=== PATIENT | female | born 1985 | race African-American/Black ===

== ENCOUNTER 2019-07-27 10:52 | Emergency (ER) | payer BC, SELFPAY ==
[2019-07-27 11:02] VITALS: BP 124/78; PULSE 83; RESP 16; TEMP 37; O2SAT 100
--- NOTE | 2019-07-27 11:04 | ED.URI ---
HPI - URI/Sore Throat General Chief Complaint: Upper Respiratory Infection Stated Complaint: ear pain/pressure/headache/congestion Time Seen by Provider: 07/27/19 11:04 Source: patient and RN notes reviewed History of Present Illness HPI Narrative: Patient is a 34-year-old female who presents the urgent care with complaints of bilateral ear pressure, decreased hearing, headache and congestion. Patient states is been off and on for approximately 2 months. States that she was seen in the emergency room and given Augmentin and took the 5 days, felt better, and then it returned within a week. Patient was seen again and given 7 days of Augmentin and states her symptoms did resolve for a few weeks. Patient states within the last couple weeks symptoms have returned and she is taken some Sudafed [id number] and Mucinex. Patient denies any fever, chills, nausea, vomiting, cough, wheezing. No other acute complaints. No acute distress noted. Patient read the plan of care. Related Data Allergies Allergy/AdvReac Type Severity Reaction Status Date / Time pomegranate Allergy Severe Wheezing Verified 07/27/19 10:59 Review of Systems Review of Systems: Narrative: CONSTITUTIONAL: Denies fever, chills, or sweats. EYES: Denies visual changes, redness, or discharge. ENT: Reports of bilateral ear pressure, decreased hearing, sinus congestion CARDIOVASCULAR: Denies chest pain, palpitations, or edema. RESPIRATORY: Denies cough or dyspnea. GASTROINTESTINAL: Denies abdominal pain, nausea, vomiting, or diarrhea. GENITOURINARY: Denies dysuria or hematuria. SKIN: Denies rash or itching. MUSCULOSKELETAL: Denies back pain, joint pain, or myalgia. NEUROLOGIC: Reports of intermittent headaches All other systems reviewed are negative, except as documented in HPI. [facility] Past Medical History Medical History (Updated 07/27/19 @ 11:33 by CASTILLO Macario) Hypertension Surgical History Surgical History (Updated 01/21/19 @ 02:40 by Corbin Guerra MD) H/O dilation and curettage History of appendectomy History of removal of ovarian cyst Social History Social History (Updated 01/21/19 @ 02:39 by Corbin Guerra MD) Substance use: never Gender identity (if verbalized by the patient): Female Comments At the time of my signature, I reviewed and agree with the nursing past medical, surgical, social, and family history. There is no relevant family history pertinent to the patient complaint. Exam Narrative: Exam Narrative: GENERAL: This is a well-nourished, well-developed patient, in no apparent distress. HEAD: normocephalic, atraumatic. EYES: PERRL. Sclera clear/white. Vision is grossly intact. EARS: External ears normal, auditory canals clear and without drainage, moderate fluid noted behind the right TM without otitis, left TMs normal without perforation. Hearing grossly intact. NOSE: External nose normal with no obvious nasal discharge, nares without redness, no rhinorrhea. THROAT: Mucous membranes moist, posterior pharynx clear. Mild postnasal drainage NECK: Neck supple CARDIOVASCULAR: Regular rate and rhythm without murmurs, gallops, or rubs. RESPIRATORY: Clear to auscultation. Breath sounds equal bilaterally. No wheezes, rales, or rhonchi. SKIN: warm, intact with no suspicious lesions or rash, good texture and turgor. NEURO: awake, alert, and oriented to person, place and time. There were no obvious focal neurologic abnormalities. EXTREMITIES: No clubbing, cyanosis, or edema. Course Vital Signs Vital signs: Vital Signs Temperature 98.6 F 07/27/19 11:02 Pulse Rate 83 07/27/19 11:02 Respiratory Rate 16 07/27/19 11:02 Blood Pressure 124/78 07/27/19 11:02 Pulse Oximetry 100 07/27/19 11:02 Temperature 98.6 F 07/27/19 11:02 Pulse Rate 83 07/27/19 11:02 Respiratory Rate 16 07/27/19 11:02 Blood Pressure 124/78 07/27/19 11:02 Pulse Oximetry 100 07/27/19 11:02 Reviewed [facility] [place]/Maureen Baez
== END 2019-07-27 11:45 | disposition home or self-care (01) ==
PROVIDERS: Emergency Provider Nurse Practitioner Family
DX: J30.89 Other allergic rhinitis (principal); I10 Essential (primary) hypertension
CPT/HCPCS: 99213; G0463

== ENCOUNTER 2019-10-30 16:21 | Observation (INO) | payer BC, SELFPAY ==
--- NOTE | ~2019-10-30 | CT_ITS ---
EXAMINATION: CT abdomen pelvis w con DATE: 10/30/2019 17:29 INDICATION: Abdominal pain TECHNIQUE: Computed tomography (CT) of the abdomen and pelvis was performed with 100 cc Omnipaque 350 intravenous contrast. The dose-length product was 551.13 mGy-cm. Automated exposure control and iter ative reconstruction technique were employed. COMPARISON: CT dated 09/19/2017 FINDINGS: Lung bases are unremarkable. Heart size normal. No significant pleural or pericardial effus ion. The liver, spleen, pancreas, adrenal glands and kidneys are unremarkable. Gallbladder is present . There is a 5.4 cm left ovarian cyst. There is a complex mass in the right adnexa, possibly ovary with hemorrhagic cyst. Differential diagnosis includes cecal mass, although less favored. Nonobstructive bowel gas pattern. No free air. No acute osseous abnormality. IMPRESSION: 1. Complex heterogeneous right adnexal mass situated adjacent to the uterus in the cecum, possibly pr ominent ovary with possible hemorrhagic cyst. Cecal mass less favored. Consider correlation with ultr asound. 2: 5.4 cm left ovarian cyst. Reviewed, dictated and finalized at location A. IMPRESSION: 1. Complex heterogeneous right adnexal mass situated adjacent to the uterus in the cecum, possibly prominent ovary with possible hemorrhagic cyst. Cecal mass less favored. Consider correlation with ultrasound. 2: 5.4 cm left ovarian cyst.
--- NOTE | ~2019-10-30 | US_ITS ---
EXAMINATION: US pelvic complete w TV DATE: 10/30/2019 18:42 INDICATION: Pelvic pain Comparison:Ultrasound dated 04/21/[address] dated 10/30/2019 TECHNIQUE: Multiple transabdominal and endovaginal sonographic images of the pelvis performed. FINDINGS: The uterus measures 11.8 x 6.9 x 5.4 cm. The endometrial complex measures 10 mm. In the right adnexa there is a complex predominantly hypoechoic mass with internal vascularity measur ing 6.9 x 4.4 x 2.3 cm. There are a few peripheral follicles. There is a complicated 5 cm cyst of the left ovary, likely hemorrhagic. Free fluid in the left adnexa. IMPRESSION: 1. Complex hypoechoic right adnexal mass measuring 6.9 x 4.4 x 2.3 cm, likely an enlarged heterogeneo us ovary. There is low resistive internal vascularity. Nonspecific findings, although intermittent ov giacomo torsion should be considered. 2: Complicated 5 cm left ovarian cyst, likely hemorrhagic. Reviewed, dictated and finalized at location A. IMPRESSION: 1. Complex hypoechoic right adnexal mass measuring 6.9 x 4.4 x 2.3 cm, likely a n enlarged heterogeneous ovary. There is low resistive internal vascularity. No nspecific findings, although intermittent ovarian torsion should be considered. 2: Complicated 5 cm left ovarian cyst, likely hemorrhagic.
[2019-10-30 16:28] VITALS: PULSE 79; RESP 18; TEMP 37.3; O2SAT 100
--- NOTE | 2019-10-30 16:28 | ED.ABDPAIN ---
HPI - Abdominal Pain General Chief Complaint: Abdominal Pain <Mathieu Aguirre DO - Last Filed: 10/31/19 07:10> Stated Complaint: abd pain <Mathieu Aguirre DO - Last Filed: 10/31/19 07:10> Time Seen by Provider: 10/30/19 16:23 <Mathieu Aguirre DO - Last Filed: 10/31/19 07:10> Source: RN notes reviewed <Mathieu Aguirre DO - Last Filed: 10/31/19 07:10> History of Present Illness HPI narrative: Patient presents emergency department from home via EMS for abdominal pain. Patient states abdominal pain began 3 days ago. Pain is located in the bilateral lower quadrants and right upper quadrant. Described as sharp and stabbing. Associate with nausea vomiting. Denies any fevers or chills chest pain shortness of breath or any other symptoms. States she took no pain medication at home today for the symptoms <Mathieu Aguirre DO - Last Filed: 10/31/19 07:10> Related Data Allergies/Adverse Reactions: Allergies Allergy/AdvReac Type Severity Reaction Status Date / Time pomegranate Allergy Severe Wheezing Verified 10/30/19 16:26 <Mathieu Aguirre DO - Last Filed: 10/31/19 07:10> Review of Systems Review of Systems: Narrative: Gen.: Denies fevers or chills ENT: Denies congestion Respiratory: Denies shortness of breath or cough CV: Denies chest pain or palpitations GI: See HPI denies burning, urgency, frequency or hematuria Musculoskeletal: Denies back pain or muscle pain Neuro: Denies numbness, tingling, weakness or focal weakness Skin: Denies rash Except as documented, all other systems reviewed and negative <Mathieu Aguirre DO - Last Filed: 10/31/19 07:10> [facility] Past Medical History Medical History: Medical History Hypertension <Mathieu Aguirre DO - Last Filed: 10/31/19 07:10> Surgical History Surgical History: Surgical History (Updated 01/21/19 @ 02:40 by Corbin Guerra MD) H/O dilation and curettage History of appendectomy History of removal of ovarian cyst <Mathieu Aguirre DO - Last Filed: 10/31/19 07:10> Social History Social History: Social History Substance use: never Gender identity (if verbalized by the patient): Female <Mathieu Aguirre DO - Last Filed: 10/31/19 07:10> Exam Narrative: Exam Narrative: APPEARANCE: No acute distress, nontoxic, resting in bed HEENT: Normocephalic, atraumatic, OMM RESPIRATORY: No respiratory distress, clear to auscultation bilaterally with no rhonchi wheezing or rales CARDIOVASCULAR: RRR s murmur ABDOMINAL: Soft, nondistended, diffusely tender to palpation, no rebound or guarding MUSCULOSKELETAl: Moves all extremities. No clubbing, cyanosis or edema. NEURO: Awake and alert. Following commands, speech normal, no focal deficits SKIN:: Warm, dry. Normal Color PSYCHIATRIC: Normal affect/mood <Mathieu Aguirre DO - Last Filed: 10/31/19 07:10> Course Course Emergency Course: Care turned over Dr. Guerra at shift change awaiting ultrasound results and disposition <Mathieu Aguirre DO - Last Filed: 10/31/19 07:10> Patient informed of results. Still having lower abdominal pain. Discussed case with Dr. Zacarias who is on-call for Dr. Pulliam. She would like the patient moved to the OB floor for further evaluation. Patient should remain n.p.o. at midnight. She will receive IV narcotics for pain control. They would like a repeat ultrasound in the a.m. <Corbin Guerra MD - Last Filed: 10/30/19 20:39> Vital Signs Vital signs: Vital Signs Temperature 99.1 F 10/30/19 16:28 Pulse Rate 79 10/30/19 16:28 Respiratory Rate 18 10/30/19 16:28 Pulse Oximetry 100 10/30/19 16:28 Temperature 98.4 F 10/31/19 04:30 Pulse Rate 64 10/31/19 04:30 Respiratory Rate 16 10/31/19 04:30 Blood Pressure 101/66 10/31/19 04:30 Pulse Oximetry 100 10/31/19 04:
[2019-10-30] MEDS: SODIUM CHLORIDE 0.9% IV 1,000 ML 999 ML IV CONT (16:38)
[2019-10-30] MEDS: ONDANSETRON INJ 4 MG/2 ML VIAL IV PUSH (16:38)
[2019-10-30 16:41] LABS: Basophils Percent Auto 0.2 % (0.2-1.2); Eosinophils Percent Auto 0.3 % (0-4.4); Hemoglobin 8.7 g/dL (12.0-15.0); Immature Granulocyte Absolute 0.02 K/mm3 (0.00-0.031); Immature Granulocyte Percent A 0.2 % (0-0.5); Lymphocytes Absolute Auto 1.15 K/mm3 (0.9-3.2); Lymphocytes Percent Auto 13.4 % (18.3-44.2); Mean Corpuscular HGB Conc 31.1 g/dl (32-36); Mean Corpuscular Hemoglobin 23.8 pg (26-34); Mean Corpuscular Volume 76.7 fl (80-100); Mean Platelet Volume 10.1 fl (7.4-10.4); Monocytes Absolute Auto 0.3 K/mm3 (0.1-0.6); Monocytes Percent Auto 3.7 % (2.6-8.5); Neutrophils Percent Auto 82.2 % (45.5-73.1); Platelet Count Result 268 k/mm3 (150-375); Red Blood Count 3.65 M/mm3 (4.2-5.4); Red Cell Distribution Width 18.6 % (11.5-14.5); White Blood Count 8.6 K/mm3 (4.5-10.0)
[2019-10-30 16:55] LABS: Alanine Aminotransferase 6 U/L (4-35); Albumin Level 4.1 g/dL (3.5-5.1); Alkaline Phosphatase 43 U/L (38-126); Anion Gap 4 mmol/L (8-16); Aspartate Amino Transferase 15 U/L (14-36); Bilirubin,Total 0.2 mg/dL (0.2-1.3); Blood Urea Nitrogen 5 mg/dL (7-17); Calcium 8.5 mg/dL (8.4-10.2); Carbon Dioxide 26 mmol/L (22-30); Chloride 105 mmol/L (98-107); Estimated CRCL calculation 107 ml/min; Estimated Glomerular Filt Rate > 60; Glucose 89 mg/dL (65-105); Lipase 33 U/L (23-300); Potassium 3.6 mmol/L (3.4-5.0); Sodium 135 mmol/L (137-145)
[2019-10-30 17:54] LABS: Add Urine Microscopic? YES; Appearance Urine Clear (Clear); Bilirubin Urine Negative (Negative); Blood Urine Negative (Negative); Color Urine Straw (Yellow); Glucose Urine UA Negative (Negative); Ketones Urine Negative (Negative); Leukocyte Esterase Ur Trace LEU/UL (Negative); Mucus Urine Rare /lpf; Nitrate Urine Negative (Negative); Protein Urine Negative (Negative); Squamous Epithelial Cell Urine Moderate /hpf (Few); Urobilinogen Urine Negative mg/dL (<2.0)
[2019-10-30 17:55] LABS: Specific Grav Ur 1.032 (1.001-1.035)
[2019-10-30] MEDS: MORPHINE SULFATE 4 MG/ML INJ IV PUSH ×2 (18:58→21:56)
[2019-10-30 20:24] VITALS: BP 117/73; PULSE 65; RESP 18; O2SAT 100
[2019-10-30 20:52] VITALS: BP 109/67; PULSE 65; RESP 18; O2SAT 100
[2019-10-30 21:30] VITALS: BP 125/88; PULSE 75; RESP 16; TEMP 36.9; O2SAT 100; O2SAT 99
--- NOTE | 2019-10-30 21:30 | ADMGEN ---
This patient, Brigitte Roberts, was admitted to OB 2nd Floor Room 289-00. Patient/family oriented to hospital policies and general routines including ID bracelet, bed and alarms, visiting hours, pain management, procedures, bathroom and other care routines, personal items, smoking policy, room service/diet, and visiting hours. Valuables list has been completed. Patient/Family are encouraged to report perceived risks to care and to ask questions if they do not understand what they are told or what they should do.
[2019-10-30] MEDS: SODIUM CHLORIDE 0.9% IV 1,000 ML 125 ML IV CONT (21:55)
[2019-10-31] VITALS (14 sets, daily range): BP systolic 99–141; BP diastolic 62–91; PULSE 50–86; RESP 12–18; TEMP 36.2–37.6; O2SAT 100
[2019-10-31] MEDS: MORPHINE SULFATE 4 MG/ML INJ IV PUSH ×3 (00:33→18:56)
[2019-10-31] MEDS: ONDANSETRON INJ 4 MG/2 ML VIAL IV PUSH ×3 (00:37→16:21)
[2019-10-31] MEDS: SODIUM CHLORIDE 0.9% IV 1,000 ML 125 ML IV CONT (07:22)
--- NOTE | 2019-10-31 08:17 | PM.IMHP ---
H&P: HPI History of Present Illness Date/Time: 10/31/19 08:17 Chief complaint: Adnexal Mass, lower abdominal pain Narrative: Brigitte Roberts is a 34 year old femaleWho presented emergency department with severe pelvic pain. The pelvic pain was sudden onset. It began 3 days ago. It has become progressively worse. She denies any vaginal bleeding. She is not . She was evaluated with CT pelvic ultrasound. She is found to have a 6 cm pelvic mass and a contralateral ovarian cyst. She denies any nausea, vomiting, fever, chills. She denies any chest pain or shortness of breath Review of Systems Constitutional: Constitutional: Reports no additional constitutional complaints, Denies fatigue, Denies headache(s), Denies lethargy and Denies weakness Eyes: Eyes: Reports no additional eye complaints, Denies blurry vision and Denies photophobia ENT: Reports as per HPI, Denies headache(s) and Denies neck pain Cardiovascular: Cardiovascular: Denies chest pain, Denies diaphoresis, Denies leg edema, Denies palpitations and Denies dyspnea Respiratory: Respiratory: Denies hemoptysis, Denies dyspnea and Denies wheezing Gastrointestinal: Gastrointestinal: Denies abdominal pain, Denies melena, Denies bloating, Denies hematochezia, Denies nausea and Denies vomiting Genitourinary: Genitourinary: Reports no additional female genitourinary complaints Musculoskeletal: Musculoskeletal: Denies joint swelling, Denies neck pain, Denies numbness and Denies stiffness Neurologic: Denies Abnormal speech present, Denies confusion, Denies headache(s), Denies numbness and Denies weakness Psychiatric: Psychiatric: Denies anxiety, Denies confusion, Denies depression, Denies homicidal ideation and Denies suicidal ideation Endocrine: Endocrine: Denies fatigue and Denies palpitations Allergic/Immunologic: Allergic/Immunologic: Denies wheezing PMFSH Past Medical History Medical History Hypertension Surgical History Surgical History (Updated 01/21/19 @ 02:40 by Corbin Guerra MD) H/O dilation and curettage History of appendectomy History of removal of ovarian cyst Social History Social History Substance use: never Gender identity (if verbalized by the patient): Female Meds Home Medications and Allergies Home Medications Medication Instructions Recorded Confirmed Type loratadine [Claritin] 10 mg PO DAILY PRN #30 tablet 07/27/19 Rx Allergies Allergy/AdvReac Type Severity Reaction Status Date / Time pomegranate Allergy Severe Wheezing Verified 10/30/19 16:26 Vital Signs Vital Signs - 24 hr 10/30/19 16:28 10/30/19 20:24 10/30/19 20:52 Temperature 99.1 F Pulse Rate 79 65 65 Respiratory Rate 18 18 18 Blood Pressure 117/73 109/67 Pulse Oximetry 100 100 100 10/30/19 21:30 10/31/19 00:15 10/31/19 04:30 Temperature 98.4 F 98.4 F 98.4 F Pulse Rate 75 60 64 Respiratory Rate 16 16 16 Blood Pressure 125/88 99/62 L 101/66 Pulse Oximetry 100 100 100 Exam Const: General: healthy appearing, comfortable and no acute distress; No confusion Orientation/consciousness: No confusion Eyes: Direct Ophthalmoscopy: No photophobia Resp: Auscultation: clear to auscultation bilaterally, no rales, no rhonchi and no wheezes Cardio: Rate: regular rate Heart sounds: no click, no murmurs and no rubs GI: Inspection: non-distended GI Palp: No abdominal tenderness Auscultation: normal bowel sounds : General: Yes bimanual renal exam abnormal External Female Exam: normal external appearance Speculum Exam - Vagina: normal appearance of the vagina Speculum Exam - Cervix: normal appearance of the cervix Bimanual exam- vagina & uterus: Uterine tenderness Bimanual Exam- Adnexa, other: tender Neuro: General: No confusion Speech: No Abnormal speech present Extrem: General: normal to inspection, no pedal edema and
[2019-10-31] MEDS: LACTATED RINGERS 1,000 ML 30 ML IV CONT ×2 (12:15→15:57)
--- NOTE | 2019-10-31 12:15 | PC.NURSE ---
To OR at 1215. SBAR on chart.
--- NOTE | 2019-10-31 13:22 | WPDANESEPPF ---
Anes - Initial Pre Proc Eval Procedure: Operation Date: 10/31/19 13:30 Proposed Procedures p Diagnostic Laparoscopy - Cleo Pulliam MD Date/Time: 10/31/19 13:22 Surgeon: Cleo Pulliam MD Pre Op Diagnosis: Adnexal Mass, lower abdominal pain Patient Data Age: 34 Gender: F Height: 5 ft 7.5 in Weight: 83.6 kg Last Vital Signs Temp 98.5 F 10/31/19 12:30 Pulse 86 10/31/19 12:30 Resp 18 10/31/19 12:30 BP 125/76 10/31/19 12:30 Pulse Ox 100 10/31/19 12:30 Allergies Allergy/AdvReac Type Severity Reaction Status Date / Time pomegranate Allergy Severe Wheezing Verified 10/30/19 16:26 Home Medications Medication Instructions Recorded Confirmed Type loratadine [Claritin] 10 mg PO DAILY PRN #30 tablet 07/27/19 10/31/19 Rx Laboratory Tests 10/30/19 10/30/19 10/30/19 16:37 16:37 17:42 WBC 8.6 K/mm3 K/mm3 (4.5-10.0) RBC 3.65 M/mm3 L M/mm3 (4.2-5.4) Hgb 8.7 g/dL L g/dL (12.0-15.0) Hct 28.0 % L % (37.0-47.0) MCV 76.7 fl L fl (80-100) MCH 23.8 pg L pg (26-34) MCHC 31.1 g/dl L g/dl (32-36) RDW 18.6 % H % (11.5-14.5) Plt Count 268 k/mm3 k/mm3 (150-375) MPV 10.1 fl fl (7.4-10.4) Immature Gran % (Auto) 0.2 % % (0-0.5) Neut % (Auto) 82.2 % H % (45.5-73.1) Lymph % (Auto) 13.4 % L % (18.3-44.2) [place] % (Auto) 3.7 % % (2.6-8.5) Eos % (Auto) 0.3 % % (0-4.4) Baso % (Auto) 0.2 % % (0.2-1.2) Lymph # (Auto) 1.15 K/mm3 K/mm3 (0.9-3.2) [place] # (Auto) 0.3 K/mm3 K/mm3 (0.1-0.6) Eos # (Auto) 0.0 K/mm3 K/mm3 (0-0.3) Baso # (Auto) 0.0 K/mm3 K/mm3 (0.0-0.1) Abs Immat Gran (auto) 0.02 K/mm3 K/mm3 (0.00-0.031) Absolute Neuts (auto) 7.0 K/mm3 H K/mm3 (1.3-6.7) Absolute Nucleated RBC 0.0 K/mm3 K/mm3 (0.0-0.012) Nucleated RBC % 0.0 % % (0.0-0.2) Sodium 135 mmol/L L mmol/L (137-145) Potassium 3.6 mmol/L mmol/L (3.4-5.0) Chloride 105 mmol/L mmol/L (98-107) Carbon Dioxide 26 mmol/L mmol/L (22-30) Anion Gap 4 mmol/L L mmol/L (8-16) BUN 5 mg/dL L mg/dL (7-17) Creatinine 0.70 mg/dL mg/dL (0.7-1.0) Estim Creat Clear Calc 107 ml/min ml/min Estimated GFR > 60 (59 - ) Glucose 89 mg/dL mg/dL (65-105) Calcium 8.5 mg/dL mg/dL (8.4-10.2) Total Bilirubin 0.2 mg/dL mg/dL (0.2-1.3) AST 15 U/L U/L (14-36) ALT 6 U/L U/L (4-35) Alkaline Phosphatase 43 U/L U/L (38-126) Total Protein 7.0 g/dL g/dL (6.3-8.2) Albumin 4.1 g/dL g/dL (3.5-5.1) Lipase 33 U/L U/L (23-300) Urine Color Straw (Yellow) Urine Appearance Clear (Clear) Urine pH 6.0 (5.0-9.0) Ur Specific [place] 1.032 (1.001-1.035) Urine Protein Negative mg/dL mg/dL (Negative) Urine Glucose (UA) Negative mg/dL mg/dL (Negative) Urine Ketones Negative mg/dL mg/dL (Negative) Ur Blood (Man) Negative (Negative) Urine Nitrate Negative (Negative) Urine Bilirubin Negative (Negative) Urine Urobilinogen Negative mg/dL mg/dL (<2.0) Leukocyte Esterase Rfl Trace TED/UL H TED/UL (Negative) Urine RBC 3-5 /hpf H /hpf (0-2) Urine WBC 7-9 /hpf H /hpf Ur Squamous Epith Cells Moderate /hpf H /hpf (Few) Urine Mucus Rare /lpf /lpf Blood Type Antibody Screen 10/30/19 20:31 WBC RBC Hgb Hct MCV MCH MCHC RDW Plt Count MPV Immature Gran % (Auto) Neut % (Auto) Lymph % (Auto) [place] % (Auto) Eos % (Auto) Baso
--- NOTE | 2019-10-31 15:54 | PM.PROC ---
Procedure Note - Detailed Date of procedure: 10/31/19 Pre-op diagnosis: Adnexal Mass, lower abdominal pain Procedure performed: Description of procedure: The patient was taken the operating room. She was prepped and draped in the dorsal lithotomy position after induction of general anesthesia. A 5 mm left upper quadrant incision was made in the abdominal skin with a scalpel. A 5 mm trocar was inserted the intra-abdominal cavity under direct visualization of the scope. A 11 mm left lower quadrant incision was made with the scalp on the abdominal skin and a 11 mm trocar was inserted the intra-abdominal cavity under direct visualization of the scope. A 5 mm infraumbilical incision was made with scalpel and a 5 mm trocar was inserted into the intra-abdominal cavity under direct visualization of the scope. 1.5 hours of adhesiolysis was performed. Sharp and blunt dissection was performed to remove the omentum from the anterior abdominal wall. The omentum was also adherent to the area of the cecum and adnexa were they came together and were adherent. There were adhesions throughout the pelvis. There is fusions around the ovaries and tubes. There were adhesions between the cecum and the right adnexa. There were adhesions between the omentum and anterior abdominal wall with a slice reported all these areas. The ureter on the left was identified and a left salpingo-oophorectomy was performed. The infundibulopelvic ligaments cauterized transected. Moving around the lateral aspect of the tibial rate tissue was cauterized transected using LigaSure cautery. The paratubal tissue was cauterized transected moving medially to the cornua where the tube was cauterized transected as well. The left adnexa was placed in endobag and taken at the left lower quadrant as were segments omentum. Omentum had been resected during the adhesiolysis of the omentum at the abdominal wall. The pelvis was irrigated with copious amounts of normal saline. The pneumoperitoneum was reduced. The trocars were removed. The patient was taken recovery room stable condition. Sponge lap and needle counts were correct x2. Anesthesia: GETA Surgeon: Cleo Pulliam MD Estimated blood loss (mL): 150 Drains: No Packing: No Complications: No immediate complications Condition: stable Disposition: PACU Findings: Pelvic adhesions throughout the bilateral fallopian tubes and ovaries. Dense adhesions between the uterus to the anterior abdominal wall dense adherence between the omentum and the anterior abdominal wall. The cecum right adnexa and omentum were all adherent together and a dense focus of adhesions. Tubes appeared scarred and poorly functional. The left ovary had a large cyst that was hemorrhagic. The right ovary could not be well visualized due to its adherence to the right pelvic sidewall.
[2019-10-31] MEDS: ONDANSETRON INJ 4 MG/2 ML VIAL (18:56)
[2019-10-31] MEDS: SIMETHICONE 80 MG TAB.CHEW (20:35)
[2019-10-31] MEDS: SIMETHICONE 80 MG TAB.CHEW PO (23:15)
[2019-11-01] MEDS: IBUPROFEN 600 MG TABLET PO ×3 (01:49→13:07)
[2019-11-01] MEDS: SIMETHICONE 80 MG TAB.CHEW PO ×2 (01:49→08:41)
[2019-11-01] MEDS: ONDANSETRON INJ 4 MG/2 ML VIAL IV PUSH (01:53)
[2019-11-01 04:30] VITALS: BP 125/80; PULSE 71; RESP 16; TEMP 36.7
--- NOTE | 2019-11-01 07:52 | WPDANESPN ---
Anes - Prog Note Post-Op Date/Time: 11/01/19 07:52 Cardiovascular status: normal Respiratory status: normal Airway patency: baseline Mental status: baseline Post-Op hydration status: normal Vital Signs: Last Vital Signs Temp 36.7 C 11/01/19 04:30 Pulse 71 11/01/19 04:30 Resp 16 11/01/19 04:30 BP 125/80 11/01/19 04:30 Pulse Ox 100 10/31/19 17:30 I/O: Intake & Output 10/31/19 10/31/19 11/01/19 15:59 23:59 07:59 Intake Total 0 150 Output Total 50 475 Balance -50 -325 Laboratory Tests 10/30/19 16:37 10/30/19 16:37 Microbiology 10/30/19 17:42 Urine Clean Catch Urine Culture - Preliminary Gram negative bacilli isolated Post-procedural complaints: none Patient Feedback: Patient satisfied with anesthetic care.
[2019-11-01 08:00] VITALS: BP 102/71; PULSE 57; RESP 18; TEMP 37.1; O2SAT 100
--- NOTE | 2019-11-01 11:45 | PM.GYNPNOP ---
SPECTROGRAPH OPERATOR - A/P Postoperative Procedures: Procedures Operation Date: 10/31/19 13:30 Actual Procedures Side Surgeon p Diagnostic Laparoscopy, Adhesiolysis, Left Ovarian Cystectomy, Left Oophorectomy Left R. Jairo Pulliam MD Postoperative day: 1 Postoperative status: doing well Postoperative plan: see orders Time Spent With Patient Time: Total time spent is greater than 50% in coordination of care (as documented) at patient's floor/unit and/or counseling patient: Time with patient: less than 15 minutes SPECTROGRAPH OPERATOR- PN:Subj Post-Op Subjective Date/time seen: 11/01/19 11:45 Subjective: patient reports feeling better, patient has no complaints and pain is well controlled Exam Const: General: healthy appearing, comfortable and no acute distress Resp: Auscultation: clear to auscultation bilaterally, no rales, no rhonchi and no wheezes Cardio: Rate: regular rate Heart sounds: no click, no murmurs and no rubs GI: Inspection: non-distended Auscultation: normal bowel sounds Extrem: General: normal to inspection, no pedal edema and no calf tenderness SPECTROGRAPH OPERATOR - PN: Obj Data Vital Signs Vital Signs: Vital Signs - 24 hr 10/31/19 12:30 10/31/19 15:56 10/31/19 16:10 Temperature 98.5 F 97.2 F L Pulse Rate 86 83 54 L Respiratory Rate 18 14 12 Blood Pressure 125/76 113/67 140/85 Pulse Oximetry 100 100 100 10/31/19 16:25 10/31/19 16:40 10/31/19 16:55 Temperature Pulse Rate 52 L 50 L 57 L Respiratory Rate 12 16 14 Blood Pressure 141/91 H 132/90 132/90 Pulse Oximetry 100 100 100 10/31/19 17:15 10/31/19 17:30 10/31/19 18:43 Temperature 98.5 F 98.2 F Pulse Rate 57 L 53 L 62 Respiratory Rate 18 18 16 Blood Pressure 132/88 131/89 134/83 Pulse Oximetry 100 100 10/31/19 23:15 11/01/19 04:30 Temperature 98.6 F 98.0 F Pulse Rate 67 71 Respiratory Rate 16 16 Blood Pressure 129/81 125/80 Pulse Oximetry Intake/Output Intake/Output: Intake & Output 10/29/19 10/30/19 10/31/19 11/01/19 23:59 23:59 23:59 23:59 Intake Total 1100 1250 Output Total 525 Balance 1100 725 Meds/Results Medications: Active Medications Generic Name Dose Route Start Last Admin Trade Name Freq PRN Reason Stop Dose Admin Hydrocodone Bitart/Acetaminophen 1 tab 10/31/19 17:43 [place] 5-325 Mg PO Q3H PRN Pain Rated 5 or Less Hydrocodone Bitart/Acetaminophen 1 tab 10/31/19 17:43 11/01/19 08:39 [place] 10-325 Mg PO 1 tab Q3H PRN Administration Pain Rated 6 or Greater Acetaminophen 1,000 mg in 100 mls @ 400 mls/hr 10/31/19 18:18 Ofirmev 1,000 Mg Ivpb IVPB 11/01/19 18:19 Q6H PRN Mild Pain (1-3) or Fever Ibuprofen 600 mg 10/31/19 16:58 11/01/19 08:40 Motrin PO 600 mg Q6H PRN Administration Cramping Ketorolac Tromethamine 30 mg 10/31/19 16:58 Toradol Inj IV PUSH 11/05/19 16:59 Q6H PRN Pain Rated 4-6 Morphine Sulfate 4 mg 10/30/19 20:36 10/31/19 18:56 Morphine Sulfate Inj IV PUSH 4 mg Q2H PRN Administration Pain Rated 7-10 Naloxone HCl 0.1 mg 10/31/19 16:58 Narcan IV PUSH Q2M PRN Respiratory rate less than 10 Ondansetron HCl 4 mg 10/31/19 18:50 11/01/19 01:53 Zofran Inj IV PUSH 4 mg Q4H PRN Administration Nausea And Vomiting Simethicone 80 mg 10/31/19 20:41 11/01/19 08:41 Mylicon PO 80 mg Q2HR PRN Administration Gas Discomfort Radiology Results: ITS Impressions Abdomen/Pelvis CT 10/30/19 17:31 IMPRESSION: 1. Complex heterogeneous right adnexal mass situated adjacent to the uterus in the cecum, possibly prominent ovary with possible hemorrhagic cyst. Cecal mass less favored. Consider correlation with ultrasound. 2: 5.4 cm left ovarian cyst. Pelvic/Transvag US 10/30/19 18:43 IMPRESSION: 1. Complex hypoechoic right adnexal mass measuring 6.9 x 4.4 x 2.3 cm, likely an enlarged heterogeneous ovary. There is low resistive internal vascularity. Nonspecific findings, although intermi
--- NOTE | 2019-11-24 08:23 | P.DS_ITS ---
DS: Admitting Diagnosis Admitting Diagnosis Admitting Diagnosis: Adnexal Mass, lower abdominal pain DS: Discharge Diagnosis Discharge Diagnosis (1) Postoperative abdominal pain: Code(s): R10.9 - Unspecified abdominal pain; G89.18 - Other acute postprocedural pain Status: Acute (2) Mass of right ovary: Code(s): N83.8 - Other noninflammatory disorders of ovary, fallopian tube and broad ligament Status: Acute (3) Pelvic pain: Code(s): R10.2 - Pelvic and perineal pain Status: Acute DS: Summary Hospital Course Hospital Course: patient observed Overnight after surgery for postoperative pain. her pain was well managed. She was afebrile throughout the stay. She was tolerating p.o. in the a.m.. She was ambulating. She was voiding. Status at Discharge Functional status at discharge: independent ambulation Time Spent with Patient Time attestation: Total time spent providing and/or coordinating discharge services: Time spent: Less than 30 minutes DS: Data Data Completed and Pending Completed studies during hospitalization: Pending at discharge 10/31/19 15:34 Surgical [PTH] Routine Discharge Plan Discharge Discharging Clinician: Cleo Pulliam Patient Disposition: Home, Self-Care Activity: pelvic rest Diet: regular Wound Care Instructions: incision open to air Follow-up/Referrals: Cleo Pulliam MD [Physician] - Discharge Medications: New hydrocodone-acetaminophen 5-325 mg tablet 1 - 2 tablet PO Q4H PRN (Reason: pain) Qty: 25 RF: 0 Continued loratadine [Claritin] 10 mg tablet 10 mg PO DAILY PRN (Reason: allergy symptoms) Qty: 30 RF: 0 Date of admission: 10/30/19 20:36 Primary Care Provider: PHYSICIAN,PARTITION ASSEMBLY MACHINE OPERATOR Admitting Provider: Cleo Pulliam Discharge Date/Time: 11/01/19 11:46 Attending physician on admission: Cleo Pulliam Condition: Stable
== END 2019-11-01 11:46 | disposition home or self-care (01) ==
LOC: ANHED 20:39 → ANHOB2 10-31 08:02
PROVIDERS: Admitting Provider Obstetrics & Gynecology; Emergency Provider Emergency Medicine; Visit Provider Obstetrics & Gynecology
PROC: (CPT 49320; principal; 2019-10-31 13:30)
DX: N83.12 Corpus luteum cyst of left ovary (principal); N83.8 Other noninflammatory disorders of ovary, fallopian tube and broad ligament; N73.6 Female pelvic peritoneal adhesions (postinfective); I10 Essential (primary) hypertension
CPT/HCPCS: 58661; 36415; 74177; 76830; 76856; 80053; 81001; 81025; 83690; 85025; 86850; 86900; 86901; 87077; 87086; 87088; 87186; 88305; 96361; 96374; 96375; 96376; 99199; 99285; A9270; G0378; G0379; J0131; J0330; J1100; J2250; J2270; J2370; J2405; J2704; J3010; J7030; J7120; Q9967; Q9968

== ENCOUNTER 2019-11-30 23:28 | Observation (INO) | payer BC, SELFPAY ==
--- NOTE | ~2019-11-30 | CT_ITS ---
EXAMINATION: CT abdomen pelvis w con INDICATION: Diffuse abdominal pain, left salpingo-oophorectomy on 10/31/2019 TECHNIQUE: Computed tomographic images of the abdomen and pelvis were obtained after the administrati on of 100 cc of Omnipaque 350 intravenous contrast. The dose-length product (DLP) was 596.57 mGy-cm. Automated exposure control and iterative reconstruction technique were employed. COMPARISON: 10/30/2019 FINDINGS: The lung bases are clear. The heart size is normal. There is a stable 1.5 cm lesion in the left hepatic lobe which appears to demonstrate interrupted peripheral nodular enhancement on prior ex aminations, consistent with a hemangioma. The spleen, pancreas, gallbladder, and adrenal glands are n ormal. Cysts of the kidneys measure up to 8 mm on the left. No pathologically enlarged abdominal or p elvic lymph nodes are identified. There is no free intraperitoneal gas or evidence of bowel obstructi on. There is a 5.3 cm complex cystic lesion of the right adnexa without significant change since the comparison examination. There is been interval left salpingo-oophorectomy. A trace amount of free flu id is present in the pelvis. Infiltration of the omental fat in the pelvis likely relates to recent a dhesiolysis. IMPRESSION: 1. Stable complex cystic lesion of the right adnexa. Given the extensive pelvic adhesions described i n the operative note for left salpingo-oophorectomy, findings likely represent a combination of the r ight ovary and peritoneal inclusion cyst containing fluid and possibly prior hemorrhagic products fro m the right ovary. Reviewed, dictated and finalized at location A. IMPRESSION: 1. Stable complex cystic lesion of the right adnexa. Given the extensive pelvic adhesions described in the operative note for left salpingo-oophorectomy, find ings likely represent a combination of the right ovary and peritoneal inclusion cyst containing fluid and possibly prior hemorrhagic products from the right o vary.
[2019-11-30 23:33] VITALS: BP 138/89; PULSE 85; RESP 16; TEMP 36.4; O2SAT 96
--- NOTE | 2019-11-30 23:58 | ED.ABDPAIN ---
HPI - Abdominal Pain General Chief Complaint: Abdominal Pain Stated Complaint: post op pain Time Seen by Provider: 11/30/19 23:37 Source: RN notes reviewed History of Present Illness HPI narrative: Patient presents emergency department from home for abdominal pain. Patient with a history of ovary removal on 10/31/2019. She states at that time she had been healing well and pain had been improving and began to again worsen approximately 5 days ago. The pain is diffuse throughout the abdomen described as sharp and stabbing associate with nausea. States she had been taking Percocet for the pain and stopped taking this 3 days ago. She denies any fevers or chills chest pain shortness of breath diarrhea or any other symptoms Related Data Allergies Allergy/AdvReac Type Severity Reaction Status Date / Time pomegranate Allergy Severe Wheezing Verified 10/30/19 16:26 Review of Systems Review of Systems: Narrative: Gen.: Denies fevers or chills ENT: Denies congestion Respiratory: Denies shortness of breath or cough CV: Denies chest pain or palpitations GI: See HPI denies burning, urgency, frequency or hematuria Musculoskeletal: Denies back pain or muscle pain Neuro: Denies numbness, tingling, weakness or focal weakness Skin: Denies rash Except as documented, all other systems reviewed and negative [facility] Past Medical History Medical History Anemia Hypertension Surgical History Surgical History (Updated 10/31/19 @ 10:32 by Vincenzo Valentino DO) H/O dilation and curettage History of appendectomy History of x7 History of removal of ovarian cyst Social History Social History Substance use: never Gender identity (if verbalized by the patient): Female Exam Narrative: Exam Narrative: APPEARANCE: No acute distress, nontoxic, resting in bed HEENT: Normocephalic, atraumatic, OMM RESPIRATORY: No respiratory distress, clear to auscultation bilaterally with no rhonchi wheezing or rales CARDIOVASCULAR: RRR s murmur ABDOMINAL: Soft, nondistended, diffusely tender to palpation, no rebound or guarding MUSCULOSKELETAl: Moves all extremities. No clubbing, cyanosis or edema. NEURO: Awake and alert. Following commands, speech normal, no focal deficits SKIN:: Warm, dry. Normal Color PSYCHIATRIC: Normal affect/mood Course Course Emergency Course: Reviewed old records. Patient had a large amount of adhesions during her operation and it was noted that the right ovary had been adhered to the abdominal wall : Discussed with Dr. Pulliam presentation work-up. Reviewed CT scan and lab results. At this time recommends observation admission to his service with a.m. ultrasound Discussed with patient and family results of workup and diagnosis. Discussed need for admission. Patient and family understand and agree to current treatment plan Vital Signs Vital signs: Vital Signs Temperature 97.6 F 11/30/19 23:33 Pulse Rate 85 11/30/19 23:33 Respiratory Rate 16 11/30/19 23:33 Blood Pressure 138/89 11/30/19 23:33 Pulse Oximetry 96 11/30/19 23:33 Temperature 97.6 F 11/30/19 23:33 Pulse Rate 85 11/30/19 23:33 Respiratory Rate 16 11/30/19 23:33 Blood Pressure 138/89 11/30/19 23:33 Pulse Oximetry 96 11/30/19 23:33 MDM - Abdominal Pain Lab Data Result diagrams: 11/30/19 23:57 11/30/19 23:57 Labs: Lab Results 11/30/19 11/30/19 12/01/19 Range/Units 23:57 23:57 00:39 WBC 6.1 (4.5-10.0) K/mm3 RBC 3.69 L (4.2-5.4) M/mm3 Hgb 8.9 L (12.0-15.0) g/dL Hct 28.6 L (37.0-47.0) % MCV 77.5 L (80-100) fl MCH 24.1 L (26-34) pg MCHC 31.1 L (32-36) g/dl RDW 18.2 H (11.5-14.5) % Plt Count 305 (150-375) k/mm3 MPV 10.3 (7.4-10.4) fl Immature Gran % (Auto) 0.0 (0-0.5) % Neut % (Auto) 58.0 (45.5-73.1) % Lymph
--- NOTE | 2019-12-01 | PC.NURSE ---
Patient states she cannot pee and won't even try to void because she hasn't drank in days.
[2019-12-01 00:06] LABS: Basophils Percent Auto 0.5 % (0.2-1.2); Eosinophils Absolute Auto 0.1 K/mm3 (0-0.3); Hematocrit 28.6 % (37.0-47.0); Hemoglobin 8.9 g/dL (12.0-15.0); Lymphocytes Absolute Auto 1.98 K/mm3 (0.9-3.2); Lymphocytes Percent Auto 32.7 % (18.3-44.2); Mean Corpuscular HGB Conc 31.1 g/dl (32-36); Mean Corpuscular Hemoglobin 24.1 pg (26-34); Mean Corpuscular Volume 77.5 fl (80-100); Mean Platelet Volume 10.3 fl (7.4-10.4); Monocytes Absolute Auto 0.5 K/mm3 (0.1-0.6); Monocytes Percent Auto 7.8 % (2.6-8.5); Neutrophils Absolute Auto 3.5 K/mm3 (1.3-6.7); Platelet Count Result 305 k/mm3 (150-375); Red Blood Count 3.69 M/mm3 (4.2-5.4); Red Cell Distribution Width 18.2 % (11.5-14.5); White Blood Count 6.1 K/mm3 (4.5-10.0)
[2019-12-01] MEDS: SODIUM CHLORIDE 0.9% IV 1,000 ML 999 ML IV CONT (00:07)
[2019-12-01] MEDS: ONDANSETRON INJ 4 MG/2 ML VIAL IV PUSH (00:07)
[2019-12-01] MEDS: MORPHINE SULFATE (*CRX) 4 MG/ML INJ IV PUSH ×3 (00:07→12:40)
[2019-12-01 00:19] LABS: Alanine Aminotransferase 7 U/L (4-35); Albumin Level 4.5 g/dL (3.5-5.1); Alkaline Phosphatase 52 U/L (38-126); Anion Gap 7 mmol/L (8-16); Aspartate Amino Transferase 14 U/L (14-36); Bilirubin,Total < 0.1 mg/dL (0.2-1.3); Blood Urea Nitrogen 9 mg/dL (7-17); Calcium 9.4 mg/dL (8.4-10.2); Carbon Dioxide 29 mmol/L (22-30); Chloride 105 mmol/L (98-107); Estimated Glomerular Filt Rate > 60; Glucose 105 mg/dL (65-105); Lipase 85 U/L (23-300); Potassium 3.7 mmol/L (3.4-5.0); Sodium 141 mmol/L (137-145)
[2019-12-01 00:37] VITALS: TEMP 36.4
[2019-12-01 01:01] VITALS: BP 132/91; PULSE 83; RESP 18; O2SAT 99
[2019-12-01 01:08] LABS: Add Urine Microscopic? YES; Appearance Urine Clear (Clear); Bacteria Urine Trace /hpf; Bilirubin Urine Negative (Negative); Blood Urine 2+ (Negative); Color Urine Yellow (Yellow); Glucose Urine UA Negative (Negative); Ketones Urine Negative (Negative); Leukocyte Esterase Ur 2+ LEU/UL (Negative); Mucus Urine Moderate /lpf; Nitrate Urine Negative (Negative); Protein Urine Negative (Negative); RBC Urine 51-75 /hpf (0-2); Squamous Epithelial Cell Urine Occasional /hpf (Few); WBC Urine 31-50 /hpf
--- NOTE | 2019-12-01 01:49 | PC.NURSE ---
Lab states they are still resulting urine at this time.
[2019-12-01] MEDS: KETOROLAC 30 MG/ML VIAL (*BKC) IV PUSH (02:04)
[2019-12-01 02:34] VITALS: TEMP 36.4
[2019-12-01 02:45] VITALS: BP 127/92; PULSE 75; RESP 14; O2SAT 100
--- NOTE | 2019-12-01 03:10 | ADMGEN ---
This patient, Brigitte Roberts, was admitted to 3 [facility] Surg Room 319-01. Patient/family oriented to hospital policies and general routines including ID bracelet, bed and alarms, visiting hours, pain management, procedures, bathroom and other care routines, personal items, smoking policy, room service/diet, and visiting hours. Valuables list has been completed. Information on how to activate the Rapid Response Team has been discussed. Patient/Family are encouraged to report perceived risks to care and to ask questions if they do not understand what they are told or what they should do.
[2019-12-01] MEDS: SODIUM CHLORIDE 0.9% IV 1,000 ML 125 ML IV CONT ×2 (03:14→12:12)
[2019-12-01 06:00] VITALS: BP 129/82; PULSE 77; RESP 20; TEMP 36.4; O2SAT 100
--- NOTE | 2019-12-01 12:32 | PM.IMHP ---
H&P: HPI History of Present Illness Date/Time: 12/01/19 12:32 Chief complaint: abdominal pain-intractable, uti Narrative: Brigitte Roberts is a 34 year old female Who is approximately 2 weeks postop from a laparoscopic left salpingo-oophorectomy and extensive adhesiolysis. She presented with abdominal pain to the emergency department. Her evaluation was equivocal but with some findings on the CT that were of concern for postoperative infection. She also had some urinary symptoms and an abnormal urinalysis. She was admitted for observation. She denies any nausea, vomiting, fever, chills at this time. She denies any chest pain or shortness of breath. Review of Systems Constitutional: Constitutional: Reports no additional constitutional complaints, Denies fatigue, Denies headache(s), Denies lethargy and Denies weakness Eyes: Eyes: Reports no additional eye complaints, Denies blurry vision and Denies photophobia ENT: Reports as per HPI, Denies headache(s) and Denies neck pain Cardiovascular: Cardiovascular: Denies chest pain, Denies diaphoresis, Denies leg edema, Denies palpitations and Denies dyspnea Respiratory: Respiratory: Denies hemoptysis, Denies dyspnea and Denies wheezing Gastrointestinal: Gastrointestinal: Denies abdominal pain, Denies melena, Denies bloating, Denies hematochezia, Denies nausea and Denies vomiting Genitourinary: Genitourinary: Reports no additional female genitourinary complaints Musculoskeletal: Musculoskeletal: Denies joint swelling, Denies neck pain, Denies numbness and Denies stiffness Neurologic: Denies Abnormal speech present, Denies confusion, Denies headache(s), Denies numbness and Denies weakness Psychiatric: Psychiatric: Denies anxiety, Denies confusion, Denies depression, Denies homicidal ideation and Denies suicidal ideation Endocrine: Endocrine: Denies fatigue and Denies palpitations Allergic/Immunologic: Allergic/Immunologic: Denies wheezing PMFSH Past Medical History Medical History Anemia Hypertension Surgical History Surgical History (Updated 10/31/19 @ 10:32 by Vincenzo Valentino DO) H/O dilation and curettage History of appendectomy History of x7 History of removal of ovarian cyst Family History Family History (Updated 12/01/19 @ 03:25 by Narinder Umana RN) Sibling Asthma Jorgensen's palsy Mother Hypertension Social History Social History Years smoked: 10 Smoking status: Current some day smoker Tobacco type: cigarettes Alcohol intake: current Drinks per week: 1 Substance use: never Gender identity (if verbalized by the patient): Female Sexual Orientation (if Verbalized by the Patient): Straight or Heterosexual Spiritual care concerns: No Meds Home Medications and Allergies Home Medications Medication Instructions Recorded Confirmed Type loratadine [Claritin] 10 mg PO DAILY 12/01/19 12/01/19 History Allergies Allergy/AdvReac Type Severity Reaction Status Date / Time pomegranate Allergy Severe Wheezing Verified 10/30/19 16:26 Vital Signs Vital Signs - 24 hr 11/30/19 23:33 12/01/19 00:37 12/01/19 01:01 Temperature 97.6 F 97.6 F Pulse Rate 85 83 Respiratory Rate 16 18 Blood Pressure 138/89 132/91 H Pulse Oximetry 96 99 12/01/19 02:34 12/01/19 02:45 12/01/19 06:00 Temperature 97.6 F 97.5 F L Pulse Rate 75 77 Respiratory Rate 14 20 Blood Pressure 127/92 H 129/82 Pulse Oximetry 100 100 Exam Const: General: healthy appearing, comfortable and no acute distress; No confusion Orientation/consciousness: No confusion Eyes: Direct Ophthalmoscopy: No photophobia Resp: Auscultation: clear to auscultation bilaterally, no rales, no rhonchi and no wheezes Cardio: Rate: regular rate Heart sounds: no click, no murmurs and no rubs GI: Inspection: non-distended GI Palp: No abdo
[2019-12-01 14:00] VITALS: BP 126/91; PULSE 73; RESP 18; TEMP 36.4; O2SAT 100
== END 2019-12-01 17:35 | disposition home or self-care (01) ==
LOC: ANHED 12-01 01:55 → ANH3MEDSUR 12-01 02:16
PROVIDERS: Admitting Provider Obstetrics & Gynecology; Emergency Provider Emergency Medicine; Visit Provider Obstetrics & Gynecology
DX: R10.9 Unspecified abdominal pain (principal); G89.18 Other acute postprocedural pain; N83.201 Unspecified ovarian cyst, right side; N39.0 Urinary tract infection, site not specified; I10 Essential (primary) hypertension; F17.210 Nicotine dependence, cigarettes, uncomplicated
CPT/HCPCS: 36415; 74177; 80053; 81001; 81025; 83690; 85025; 87077; 87086; 87088; 87186; 96361; 96365; 96375; 96376; 99285; G0378; G0379; J0696; J1885; J2270; J2405; J7030; Q9967

== ENCOUNTER 2020-07-18 16:17 | Emergency (ER) | payer BC, SELFPAY ==
--- NOTE | ~2020-07-18 | CT_ITS ---
EXAMINATION: CT abdomen pelvis w con EXAM DATE: 07/18/2020 18:32 INDICATION: Low abdominal pain. TECHNIQUE: Spiral CT of the abdomen and pelvis was performed following intravenous injection of 100 m L Omnipaque 350. Axial, coronal and sagittal images of the abdomen and pelvis were reviewed. The do se-length product (DLP) for this examination was 493.53 mGy-cm. The exposure was tailored according to patient size (auto mA exposure control), and iterative reconstruction (ASIR) was used as additiona l dose reduction technique. Comparison is made to prior examination from 12/01/2019. FINDINGS: The liver, spleen, adrenal glands and pancreas are unremarkable. Gallbladder is unremarkab le. No biliary obstruction. Portal and splenic veins are patent. Kidneys enhance symmetrically. T here is no hydronephrosis. Complex cystic right ovary measuring 6.4 x 5.0 x 8.6 cm, likely the same 5.3 cm region described on p rior abdomen pelvis CT. This lesion has increased in size, and therefore ovarian cancer should be con sidered. Differential diagnosis includes an inclusion cyst, chronic hemorrhagic cyst, endometrioma, m alignant or benign cystic ovarian neoplasm. Reportedly patient had left oophorectomy last October, cor relate with prior CT and surgical reports (may have been directly visualized on prior surgery?) Some scarring is identified anterior to the bladder. Interval development of bilateral inguinal lymph adenopathy, lymph nodes measuring about 1.2 x 1.6 cm. There is a lymph node deep to the right inguina l canal measuring 1.7 x 1.4 cm. Trace perihepatic ascites. The appendix is not positively visualized. There is no pericecal inflammatory change to suggest appe ndicitis. The stomach and small bowel are unremarkable. There is moderate amount of colonic stool. No free intraperitoneal gas. The heart is normal in size. There are no pericardial or pleural e ffusions. The lung bases are unremarkable. The bones are unremarkable. IMPRESSION: 1. Increase in size of complex cystic right ovarian mass, may indicate benign or malignant ovarian c ancer. Recommend GALLEY HAND consult and histologic correlation if not already evaluated at prior operation. 2. Interval development of right-sided pelvic and bilateral inguinal lymphadenopathy, could be react romario, lymphoma or other malignancy. 3. Moderate colonic stool. Reviewed, dictated and finalized at location A. IMPRESSION: 1. Increase in size of complex cystic right ovarian mass, may indicate benign or malignant ovarian cancer. Recommend GALLEY HAND consult and histologic correlation i f not already evaluated at prior operation. 2. Interval development of right-sided pelvic and bilateral inguinal lymphaden opathy, could be reactive, lymphoma or other malignancy. 3. Moderate colonic stool.
[2020-07-18 16:26] VITALS: BP 130/94; PULSE 78; RESP 20; TEMP 36.8; O2SAT 100
[2020-07-18 16:51] LABS: Basophils Percent Auto 0.4 % (0.2-1.2); Eosinophils Percent Auto 0.7 % (0-4.4); Hemoglobin 8.6 g/dL (12.0-15.0); Immature Granulocyte Absolute 0.02 K/mm3 (0.00-0.031); Immature Granulocyte Percent A 0.4 % (0-0.5); Lymphocytes Absolute Auto 1.69 K/mm3 (0.9-3.2); Lymphocytes Percent Auto 30.5 % (18.3-44.2); Mean Corpuscular HGB Conc 29.7 g/dl (32-36); Mean Corpuscular Hemoglobin 21.8 pg (26-34); Mean Corpuscular Volume 73.6 fl (80-100); Mean Platelet Volume 10.1 fl (7.4-10.4); Monocytes Absolute Auto 0.4 K/mm3 (0.1-0.6); Monocytes Percent Auto 7.9 % (2.6-8.5); Neutrophils Absolute Auto 3.3 K/mm3 (1.3-6.7); Neutrophils Percent Auto 60.1 % (45.5-73.1); Platelet Count Result 258 k/mm3 (150-375); Red Blood Count 3.94 M/mm3 (4.2-5.4); White Blood Count 5.6 K/mm3 (4.5-10.0)
[2020-07-18 17:02] LABS: Add Urine Microscopic? YES; Appearance Urine Cloudy (Clear); Bacteria Urine Trace /hpf; Bilirubin Urine Negative (Negative); Blood Urine Negative (Negative); Color Urine Yellow (Yellow); Glucose Urine UA Negative (Negative); Ketones Urine Negative (Negative); Leukocyte Esterase Ur Negative LEU/UL (Negative); Mucus Urine Few /lpf; Nitrate Urine Negative (Negative); Protein Urine 1+ mg/dL (Negative); Specific Grav Ur 1.021 (1.001-1.035); Squamous Epithelial Cell Urine Rare /hpf (Few); Urobilinogen Urine Negative mg/dL (<2.0); WBC Urine 0-3 /hpf
[2020-07-18 17:08] LABS: Alanine Aminotransferase 12 U/L (4-35); Albumin Level 4.2 g/dL (3.5-5.1); Alkaline Phosphatase 58 U/L (38-126); Anion Gap 4 mmol/L (8-16); Aspartate Amino Transferase 21 U/L (14-36); Bilirubin,Total < 0.1 mg/dL (0.2-1.3); Blood Urea Nitrogen 12 mg/dL (7-17); Calcium 9.6 mg/dL (8.4-10.2); Carbon Dioxide 28 mmol/L (22-30); Chloride 104 mmol/L (98-107); Estimated CRCL calculation 104 ml/min; Estimated Glomerular Filt Rate > 60; Glucose 91 mg/dL (65-105); Lipase 77 U/L (23-300); Potassium 3.8 mmol/L (3.4-5.0); Sodium 136 mmol/L (137-145)
--- NOTE | 2020-07-18 17:28 | ED.ABDPAIN ---
HPI - Abdominal Pain General Chief Complaint: Abdominal Pain Stated Complaint: abd pain Time Seen by Provider: 07/18/20 17:24 Source: RN notes reviewed History of Present Illness HPI narrative: Patient presents to emergency room from home for abdominal pain. Patient states she has had intermittent abdominal pain over the past year and a half worse over the past 2 weeks. The pain is located bilateral lower abdomen described as cramping. States is associated with nausea. She denies any fevers or chills, chest pain, shortness of breath vomiting, diarrhea or any other symptoms states she took no pain medication today. Denies any vaginal bleeding or discharge. Patient does have a history of having a ovary removed in the past Related Data Home Medications Medication Instructions Recorded Confirmed loratadine [Claritin] 10 mg PO DAILY 12/01/19 12/01/19 Allergies Allergy/AdvReac Type Severity Reaction Status Date / Time pomegranate Allergy Severe Wheezing Verified 10/30/19 16:26 Review of Systems Review of Systems: Narrative: Gen.: Denies fevers or chills ENT: Denies congestion Respiratory: Denies shortness of breath or cough CV: Denies chest pain or palpitations GI: See HPI denies burning, urgency, frequency or hematuria Musculoskeletal: Denies back pain or muscle pain Neuro: Denies numbness, tingling, weakness or focal weakness Skin: Denies rash Except as documented, all other systems reviewed and negative [facility] Past Medical History Medical History (Updated 07/18/20 @ 18:59 by Mathieu Aguirre DO) Anemia Hypertension Surgical History Surgical History (Updated 10/31/19 @ 10:32 by Vincenzo Valentino DO) H/O dilation and curettage History of appendectomy History of x7 History of removal of ovarian cyst Family History Family History (Updated 12/01/19 @ 03:25 by Narinder Umana RN) Sibling Asthma Jorgensen's palsy Mother Hypertension Social History Social History Years smoked: 10 Smoking status: Current some day smoker Tobacco type: cigarettes Alcohol intake: current Drinks per week: 1 Substance use: never Gender identity (if verbalized by the patient): Female Spiritual care concerns: No Exam Narrative: Exam Narrative: APPEARANCE: No acute distress, nontoxic, resting in bed HEENT: Normocephalic, atraumatic, OMM RESPIRATORY: No respiratory distress, clear to auscultation bilaterally with no rhonchi wheezing or rales CARDIOVASCULAR: RRR s murmur ABDOMINAL: Soft nondistended, tender to palpation right lower quadrant left lower quadrant no tenderness in right upper quadrant left upper quadrant no rebound or guarding MUSCULOSKELETAl: Moves all extremities. No clubbing, cyanosis or edema. NEURO: Awake and alert. Following commands, speech normal, no focal deficits SKIN:: Warm, dry. Normal Color PSYCHIATRIC: Normal affect/mood Course Course Emergency Course: Reviewed old records. Patient with chronic anemia and current levels consistent with prior Discussed with Dr. Pulliam presentation work-up request patient had a CA-125 obtained at this time recommends discharge with follow-up in the office this week Patient states that they are feeling much better at this time. States abdominal pain has improved. Repeat abdominal exam shows the patient's abdomen to be soft with no surgical abdomen present discussed with patient results of workup and diagnosis. Discussed need for follow-up with primary care physician, reasons to return to the emergency department in proper use of medication. Patient understands and agrees to current treatment plan. I discussed with patient the right ovarian mass need for follow-up to rule out ovarian cancer Vital Signs Vital signs: Vital Signs Temperature 98.2 F 07/18/20 16:26 Pulse Rate 78 07/18/20 16:26 Respiratory Rate 20 07/18/20 16:26 Blood Pressure 130/94 H 07/18/20 16:26
[2020-07-18] MEDS: SODIUM CHLORIDE 0.9% IV 1,000 ML 999 ML IV CONT (18:03)
[2020-07-18] MEDS: ONDANSETRON INJ 4 MG/2 ML VIAL IV PUSH (18:05)
[2020-07-18] MEDS: KETOROLAC 30 MG/ML VIAL (*BKC) IV PUSH (18:05)
--- NOTE | 2020-07-18 18:35 | PC.NURSE ---
Pt to CT via stretcher.
[2020-07-18] MEDS: MORPHINE SULFATE (*CRX) 4 MG/ML INJ IV PUSH (19:13)
[2020-07-18 19:45] VITALS: BP 117/91; PULSE 77; RESP 20; O2SAT 100
[2020-07-21 05:36] LABS: CA-125 4 U/mL (<35)
== END 2020-07-18 19:47 | disposition home or self-care (01) ==
PROVIDERS: Emergency Medicine; Emergency Provider Emergency Medicine
DX: N83.9 Noninflammatory disorder of ovary, fallopian tube and broad ligament, unspecified (principal); R10.32 Left lower quadrant pain; R10.31 Right lower quadrant pain; I10 Essential (primary) hypertension; D64.9 Anemia, unspecified; F17.210 Nicotine dependence, cigarettes, uncomplicated
CPT/HCPCS: 36415; 74177; 80053; 81001; 81025; 83690; 85025; 86304; 96361; 96374; 96375; 99284; J1885; J2270; J2405; J7030; Q9967

== ENCOUNTER 2020-08-11 08:45 | Emergency (ER) | payer BC, SELFPAY ==
[2020-08-11 08:53] VITALS: BP 156/93; PULSE 91; RESP 20; TEMP 36.6; O2SAT 100
--- NOTE | 2020-08-11 08:56 | ED.EAR ---
HPI - Ear Problem General Chief complaint: Ear Stated complaint: Ear pain Time Seen by Provider: 08/11/20 08:56 Source: patient and RN notes reviewed History of Present Illness HPI Narrative: Patient is a 35-year-old female who presents the urgent care with complaints of bilateral ear pain, nasal congestion, postnasal drainage and sore throat. Patient states that it started on Sunday and she has been taking her usual daily Claritin as well as NyQuil, Tylenol and ibuprofen. Patient denies of any fevers, nausea, vomiting. Patient states that she has had issues with her ears in the past and also reports of a history of pneumonia. Patient currently denies of cough. Denies of any known exposure to strep or Covid. No other acute complaints. No acute distress noted. Patient aware of the plan of care. Some parts of this dictation were generated by voice recognition software and may contain typographical and/or grammatical inaccuracies. Related Data Home Medications Medication Instructions Recorded Confirmed loratadine [Claritin] 10 mg PO DAILY 12/01/19 12/01/19 Allergies Allergy/AdvReac Type Severity Reaction Status Date / Time pomegranate Allergy Severe Wheezing Verified 08/11/20 08:53 Review of Systems Review of Systems: Narrative: CONSTITUTIONAL: Denies fever, chills, or sweats. EYES: Denies visual changes, redness, or discharge. ENT: Reports of sinus drainage, nasal congestion, sore throat and bilateral otalgia worse on the left CARDIOVASCULAR: Denies chest pain, palpitations, or edema. RESPIRATORY: Denies cough or dyspnea. GASTROINTESTINAL: Denies abdominal pain, nausea, vomiting, or diarrhea. GENITOURINARY: Denies dysuria or hematuria. SKIN: Denies rash or itching. MUSCULOSKELETAL: Denies back pain, joint pain, or myalgia. NEUROLOGIC: Denies headache, numbness, or weakness. All other systems reviewed are negative, except as documented in HPI. [facility] Past Medical History Medical History (Updated 08/11/20 @ 09:15 by CASTILLO Macario) Anemia Hypertension Surgical History Surgical History (Updated 10/31/19 @ 10:32 by Vincenzo Valentino DO) H/O dilation and curettage History of appendectomy History of x7 History of removal of ovarian cyst Family History Family History (Updated 12/01/19 @ 03:25 by Narinder Umana RN) Sibling Asthma Jorgensen's palsy Mother Hypertension Social History Social History Years smoked: 10 Smoking status: Current some day smoker Tobacco type: cigarettes Alcohol intake: current Drinks per week: 1 Substance use: never Gender identity (if verbalized by the patient): Female Spiritual care concerns: No Comments At the time of my signature, I reviewed and agree with the nursing past medical, surgical, social, and family history. There is no relevant family history pertinent to the patient complaint. Exam Narrative: Exam Narrative: GENERAL: This is a well-nourished, well-developed patient, in no apparent distress. HEAD: normocephalic, atraumatic. EYES: PERRL. Sclera clear/white. Vision is grossly intact. EARS: External ears normal, auditory canals clear and without drainage, TMs normal without perforation. Hearing grossly intact. NOSE: External nose normal with no obvious nasal discharge, nares without redness, no rhinorrhea. THROAT: Mucous membranes moist, mild erythema noted posterior oropharynx with mild to moderate drainage without exudate or ulceration NECK: Neck supple, non-tender without lymphadenopathy CARDIOVASCULAR: Regular rate and rhythm without murmurs, gallops, or rubs. RESPIRATORY: Clear to auscultation. Breath sounds equal bilaterally. No wheezes, rales, or rhonchi. SKIN: warm, intact with no suspicious lesions or rash, good texture and turgor. NEURO: awake, alert, and oriented to person, place and time. There were no obvious focal neurologic abnormalities. EXTREMITIES:
== END 2020-08-11 09:22 | disposition home or self-care (01) ==
PROVIDERS: Emergency Provider Nurse Practitioner Family
DX: J32.9 Chronic sinusitis, unspecified (principal); I10 Essential (primary) hypertension; Z86.2 Personal history of diseases of the blood and blood-forming organs and certain disorders involving the immune mechanism; F17.210 Nicotine dependence, cigarettes, uncomplicated
CPT/HCPCS: 87081; 87880; 99213; G0463

== ENCOUNTER 2020-08-22 20:58 | Emergency (ER) | payer BC, SELFPAY ==
[2020-08-22 21:17] VITALS: BP 128/78; PULSE 81; RESP 18; TEMP 36.9; O2SAT 100
--- NOTE | 2020-08-22 22:52 | ED.ALLEREA ---
HPI - Allergic Reaction General Chief complaint: Allergic Reaction Stated complaint: itchy Time Seen by Provider: 08/22/20 22:39 History of Present Illness HPI narrative: Patient is a 35-year-old female who presents ER with body itching. Worsening over the last couple days. Patient reports rash earlier but none now. No fevers chills or sweats. Reports mild sinus congestion has been ongoing over the last week. Has not tried any medications to help with her discomfort. She does take Claritin daily. No new body lotions or perfumes. She does report there are some new kittens of moved in the house over the last couple days. Related Data Home Medications Medication Instructions Recorded Confirmed loratadine [Claritin] 10 mg PO DAILY 12/01/19 12/01/19 Allergies Allergy/AdvReac Type Severity Reaction Status Date / Time pomegranate Allergy Severe Wheezing Verified 08/11/20 08:53 Review of Systems Constitutional: Constitutional: Denies chills, Denies fever(s) and Denies weakness ENT: Denies dysphagia, Reports nasal congestion and Denies sore throat Integumentary/Breasts: Skin/Breast: Reports pruritus and Reports rash PMFSH Past Medical History Medical History (Updated 08/22/20 @ 22:57 by Corbin Guerra MD) Anemia Hypertension Surgical History Surgical History (Updated 10/31/19 @ 10:32 by Vincenzo Valentino DO) H/O dilation and curettage History of appendectomy History of x7 History of removal of ovarian cyst Family History Family History (Updated 12/01/19 @ 03:25 by Narinder Umana RN) Sibling Asthma Jorgensen's palsy Mother Hypertension Social History Social History Years smoked: 10 Smoking status: Current some day smoker Tobacco type: cigarettes Alcohol intake: current Drinks per week: 1 Substance use: never Gender identity (if verbalized by the patient): Female Spiritual care concerns: No Exam Narrative: Exam Narrative: GENERAL: Well-appearing, well-nourished, and in no acute distress. HEAD: Normocephalic, atraumatic. ENT: Mucous membranes moist. Normal-appearing posterior oropharynx. NECK: Supple. EXTREMITIES: Normal range of motion. No edema. SKIN: Warm, dry, no rash. No excoriations. NEURO: Alert and oriented x3. Course Course Emergency Course: Vitas may be related to patient's recent arrival of kittens in her home. Will give hydroxyzine and recommend removal of felines. Vital Signs Vital signs: Vital Signs Temperature 98.5 F 08/22/20 21:17 Pulse Rate 81 08/22/20 21:17 Respiratory Rate 18 08/22/20 21:17 Blood Pressure 128/78 08/22/20 21:17 Pulse Oximetry 100 08/22/20 21:17 Temperature 98.5 F 08/22/20 21:17 Pulse Rate 81 08/22/20 21:17 Respiratory Rate 18 08/22/20 21:17 Blood Pressure 128/78 08/22/20 21:17 Pulse Oximetry 100 08/22/20 21:17 Discharge Plan Discharge Clinical Impression: Itchy skin Patient Disposition: Home, Self-Care Condition: Stable Instructions: Itchy Skin (ED) Additional Instructions: Your itching may be related to your tetanus. You may try removing them from your home and seeing if your symptoms improve. Take Vistaril as needed for itching. Return to the ER if you cannot breathe, you cannot swallow, you have additional concerns. Prescriptions: New hydroxyzine pamoate [Vistaril] 25 mg capsule 25 mg PO TID PRN (Reason: itching) Qty: 20 RF: 0 No Action methylprednisolone [Medrol (Marcial)] 4 mg tablets,dose pack See Rx Instructions .ROUTE .COMPLEX Qty: 21 RF: 0 fluticasone propionate [Flonase Allergy Relief] 50 mcg/actuation spray,suspension 2 spray NASAL DAILY Qty: 15.8 RF: 0 loratadine [Claritin] 10 mg tablet 10 mg PO DAILY RF: 0 nitrofurantoin monohyd/m-cryst [Macrobid] 100 mg capsule 100 mg PO Q12H 7 Days Qty: 14 RF: 0 ibuprofen [IBU] 600 mg tablet 600 mg PO Q6H PRN (R
[2020-08-22] MEDS: hydrOXYzine pamoate 25 MG CAPSULE PO (23:14)
[2020-08-22 23:20] VITALS: BP 121/73; PULSE 71; RESP 16; TEMP 36.3; O2SAT 99
== END 2020-08-22 23:20 | disposition home or self-care (01) ==
LOC: ANHED 23:00
PROVIDERS: Emergency Provider Emergency Medicine
DX: L29.9 Pruritus, unspecified (principal); I10 Essential (primary) hypertension; F17.210 Nicotine dependence, cigarettes, uncomplicated; Z86.2 Personal history of diseases of the blood and blood-forming organs and certain disorders involving the immune mechanism
CPT/HCPCS: 99283; A9270

== ENCOUNTER 2020-09-03 15:39 | Emergency (ER) | payer BC, SELFPAY ==
[2020-09-03 15:56] VITALS: BP 137/109; PULSE 99; RESP 18; TEMP 37.2; O2SAT 100
[2020-09-03 17:59] VITALS: BP 151/102; PULSE 94; RESP 18; TEMP 36.8; O2SAT 100
--- NOTE | 2020-09-03 18:27 | ED.SKABFB ---
HPI - Skin/Abscess/Foreign Bdy General Chief complaint: Skin/Abscess/Foreign Body Stated complaint: ITCHING FOR 2WKS Time Seen by Provider: 09/03/20 18:05 Source: patient Mode of arrival: ambulatory Limitations: no limitations History of Present Illness HPI narrative: Patient is a 35-year-old female complaining of itching all over accompanied by raspy throat that started 2 weeks ago. Patient states that she was seen here last week and was given Vistaril, states that it helped with her symptoms but continues to itch. She did states that she recently acquired kittens. Patient denies any facial, throat, tongue or lip swelling. Patient denies any shortness of breath. Patient denies any rash or extremity swelling. Related Data Home Medications Medication Instructions Recorded Confirmed loratadine [Claritin] 10 mg PO DAILY 12/01/19 12/01/19 Allergies Allergy/AdvReac Type Severity Reaction Status Date / Time pomegranate Allergy Severe Wheezing Verified 08/11/20 08:53 Review of Systems Review of Systems: All systems reviewed & are unremarkable except as noted in HPI and below PMFSH Past Medical History Medical History (Updated 09/03/20 @ 18:33 by Mathieu Ng MD) Anemia Hypertension Surgical History Surgical History H/O dilation and curettage History of appendectomy History of x7 History of removal of ovarian cyst Family History Family History Sibling Asthma Jorgensen's palsy Mother Hypertension Social History Social History Years smoked: 10 Smoking status: Current some day smoker Tobacco type: cigarettes Alcohol intake: current Drinks per week: 1 Substance use: never Gender identity (if verbalized by the patient): Female Spiritual care concerns: No Exam Const: General: cooperative, healthy appearing, comfortable, no acute distress, well developed, alert and awake; No confusion Orientation/consciousness: oriented to person, oriented to place, oriented to time, patient oriented x3 and No confusion Limitations: no limitations HENMT: Head: normal to inspection, normocephalic and atraumatic Ears: hearing grossly normal bilaterally, TM normal on the right and TM normal on the left General nose exam: Normal external nose present, Normal nares present and No nasal discharge present Face and sinus: normal facial exam Mouth: Yes Normal oral and palatal mucosa present, Yes lip normal, Yes tongue normal and Yes oropharynx normal Throat: posterior oropharynx normal, tonsils normal and uvula midline Other: Clear oropharyngeal area, negative for any swelling or edema Eyes: General: appearance normal, both eyes and all related structures Pupils: Equal, round and reactive pupils present EOM: EOMs intact bilaterally Neck: Neck: normal visual inspection, full ROM, no lymphadenopathy and no meningeal signs Chest: Chest palpation & inspection: normal inspection of the chest Resp: Effort & Inspection: normal respiratory effort, able to speak in complete sentences, no respiratory distress and not tachypneic Auscultation: clear to auscultation bilaterally, no crackles, no rales, no rhonchi and no wheezes Cardio: Rate: regular rate Rhythm: regular rhythm GI: Inspection: normal to inspection GI Palp: No abdominal tenderness, Yes Soft to palpation, No Tenderness to palpation present (GI), No Guarding due to palpation present (GI), No Rigid due to palpation and No Rebound tenderness present Auscultation: normal bowel sounds : General: Yes no CVA tenderness Back/Spine/Pelvis: Back: no CVA tenderness Skin: General skin exam: normal color, no rashes or lesions noted, elasticity normal and turgor normal Neuro: General: oriented to person, oriented to place, oriented to time, patient oriented x3, tone normal, moves all ex
[2020-09-03] MEDS: diphenhydrAMINE HCl CAP 25 MG CAPSULE PO (19:34)
[2020-09-03] MEDS: predniSONE 20 MG TABLET 60 MG PO (19:34)
[2020-09-03] MEDS: FAMOTIDINE 20 MG TABLET 40 MG PO (19:34)
== END 2020-09-03 19:40 | disposition home or self-care (01) ==
PROVIDERS: Emergency Provider Emergency Medicine
DX: T78.40XA Allergy, unspecified, initial encounter (principal); I10 Essential (primary) hypertension; Z86.2 Personal history of diseases of the blood and blood-forming organs and certain disorders involving the immune mechanism; F17.210 Nicotine dependence, cigarettes, uncomplicated
CPT/HCPCS: 81025; 99283; A9270; J7512

== ENCOUNTER 2022-01-14 20:02 | Emergency (ER) | payer BC, SELFPAY ==
[2022-01-14 20:07] VITALS: BP 130/78; PULSE 92; RESP 16; TEMP 36.8; O2SAT 100
--- NOTE | 2022-01-14 20:56 | ED.GENADULT ---
HPI - General Adult General Chief complaint: Headache <TONY Zazueta Last Filed: 01/15/22 01:42> Stated complaint: COLD SYMPTOMS <TONY Zazueta Last Filed: 01/15/22 01:42> Time Seen by Provider: 01/14/22 20:39 <TONY Zazueta Last Filed: 01/15/22 01:42> History of Present Illness HPI narrative: Patient is a 36-year-old female here for evaluation of sinus congestion/ pressure, diffuse headaches, left ear fullness and dental pain for the past 2 weeks. Patient states that her symptoms came on gradually at first, resolved without intervention for several days, but then came back about a week ago. Patient has been attempting Tylenol and ibuprofen for headaches with good relief. She has a history of sinus infections and previously saw an ENT but has not seen a specialist for several years. Positive sick contacts, patient's 2-year-old daughter has similar symptoms. She denies any visual changes, fevers, shortness of breath, chest pain, nausea, vomiting. Additionally, patient is complaining of urinary frequency but no urgency, dysuria, hematuria. <TONY Zazueta Last Filed: 01/15/22 01:42> Related Data Home medications: Home Medications Medication Instructions Recorded Confirmed loratadine 10 mg tablet (Claritin) 10 mg PO DAILY 12/01/19 12/01/19 <TONY Zazueta Last Filed: 01/15/22 01:42> Allergies/adverse reactions: Allergies Allergy/AdvReac Type Severity Reaction Status Date / Time pomegranate Allergy Severe Wheezing Verified 08/11/20 08:53 <TONY Zazueta Last Filed: 01/15/22 01:42> Review of Systems Review of Systems: Gen.: Denies fevers or chills Eyes: Denies eye pain or visual change ENT: Reports congestion, dental pain, ear pain Respiratory: Denies shortness of breath or cough CV: Denies chest pain or palpitations GI: Denies abdominal pain nausea, emesis or diarrhea denies burning, urgency, frequency or hematuria Musculoskeletal: Denies back pain or muscle pain Neuro: Denies numbness, tingling, weakness or focal weakness Skin: Denies rash Except as documented, all other systems reviewed and negative <Kathya Arriola PA-C - Last Filed: 01/15/22 01:42> [facility] Past Medical History Medical History: Medical History (Updated 01/15/22 @ 00:00 by Background Subha) Anemia Hypertension <Kathya Arriola PA-C - Last Filed: 01/15/22 01:42> Surgical History Surgical History: Surgical History H/O dilation and curettage History of appendectomy History of x7 History of removal of ovarian cyst <Kathya Arriola PA-C - Last Filed: 01/15/22 01:42> Family History Family History: Family History Sibling Asthma Jorgensen's palsy Mother Hypertension <Kathya Arriola PA-C - Last Filed: 01/15/22 01:42> Social History Social History: Social History Years smoked: 10 Smoking status: Current some day smoker Tobacco type: cigarettes Alcohol intake: current Drinks per week: 1 Alcohol use details: rare etoh Substance use: never Gender identity (if verbalized by the patient): Female Sexual Orientation (if Verbalized by the Patient): Straight or Heterosexual Spiritual care concerns: No <Kathya Arriola PA-C - Last Filed: 01/15/22 01:42> Exam Narrative: APPEARANCE: Well appearing, no pain in distress, well-nourished. Head: Normocephalic and atraumatic. EYES: PERRLA/EOMI, conjunctivae clear NOSE: Clear nasal drainage noted. Tenderness to frontal sinuses. EARS: Bilateral TMs are clear. No mastoid tenderness. External ear normal in appearance THROAT: Oropharynx is clear. Mucous membranes are moist. Normal dentition, no visible abscess or so
[2022-01-14 21:42] LABS: Appearance Urine Clear (Clear); Bilirubin Urine Negative (Negative); Blood Urine 2+ (Negative); Color Urine Yellow (Yellow); Glucose Urine UA Negative (Negative); Ketones Urine Trace mg/dL (Negative); Leukocyte Esterase Ur Negative LEU/UL (Negative); Nitrate Urine Negative (Negative); Protein Urine Negative (Negative); Specific Grav Ur >= 1.030 (1.001-1.035); pH Urine 5.5 (5.0-9.0)
[2022-01-14 21:58] LABS: Mucus Urine Rare /lpf; Squamous Epithelial Cell Urine Occasional /hpf (Few); WBC Urine 0-3 /hpf
[2022-01-14 22:14] LABS: Add Urine Microscopic? YES
[2022-01-14 22:18] LABS: Influenza A QL RT-PCR Negative (Negative); Influenza B QL RT-PCR Negative (Negative); SARS-CoV-2 RNA PCR Negative
== END 2022-01-14 23:10 | disposition home or self-care (01) ==
PROVIDERS: Physician Assistant; Emergency Provider Emergency Medicine
DX: J32.9 Chronic sinusitis, unspecified (principal); B96.89 Other specified bacterial agents as the cause of diseases classified elsewhere; I10 Essential (primary) hypertension; F17.210 Nicotine dependence, cigarettes, uncomplicated; Z20.822 Contact with and (suspected) exposure to COVID-19
CPT/HCPCS: 81001; 81025; 87636; 99283

== ENCOUNTER 2022-03-27 17:20 | Emergency (ER) | payer BC, SELFPAY ==
--- NOTE | ~2022-03-27 | XR_ITS ---
EXAM: [id number] DATE: 03/27/2022 20:13 HISTORY: midline tenderness, LUE paresthesia . COMPARISON: 07/27/2013. FINDINGS: Craniocervical association and atlantoaxial joint are aligned and display mild degenerativ e change. No prevertebral soft tissue swelling. Vertebral bodies are aligned. Vertebral body heights are maintained. Mild disc space narrowing and marginal osteophytosis at C6-7, otherwise normal disc s paces. Mild multilevel facet arthropathy and uncovertebral joint hypertrophy. IMPRESSION: No acute fracture or traumatic malalignment in the cervical spine. Reviewed, dictated and finalized at location K. NISTRATIVE SUPPORT SPECIALIST
[2022-03-27 18:28] VITALS: BP 131/76; PULSE 90; RESP 16; TEMP 36.9; O2SAT 100
--- NOTE | 2022-03-27 19:56 | ED.GENADULT ---
HPI - General Adult General Chief complaint: Unspecified Stated complaint: trouble swallowing, trouble moving Time Seen by Provider: 03/27/22 19:29 History of Present Illness HPI narrative: Patient is a 37-year-old female here for evaluation of intermittent paresthesias in her left upper extremity accompanied by a shooting pain x 3 days. Patient denies any obvious trigger for her symptoms including neck trauma. States that the symptoms have progressed in severity over the past several days. Has attempted ibuprofen, lidocaine patch and Tylenol without relief of her symptoms. She has a history of degenerative disc disease in her back. No headaches, weakness in the arm, fevers or chills, nausea or vomiting. She is also complaining of some throat tightness/sore throat. No trismus, facial swelling, vocal changes, drooling. Related Data Home Medications Medication Instructions Recorded Confirmed loratadine 10 mg tablet (Claritin) 10 mg PO DAILY 12/01/19 12/01/19 Allergies Allergy/AdvReac Type Severity Reaction Status Date / Time pomegranate Allergy Severe Wheezing Verified 08/11/20 08:53 Review of Systems Review of Systems: Gen: Denies fevers or chills Eyes: Denies eye pain or visual change ENT: Denies congestion Respiratory: Denies shortness of breath or cough CV: Denies chest pain or palpitations GI: Denies abdominal pain nausea, emesis or diarrhea : denies burning, urgency, frequency or hematuria Musculoskeletal: Reports neck pain and left upper extremity numbness and tingling Neuro: Denies numbness, tingling, weakness or focal weakness Skin: Denies rash Except as documented, all other systems reviewed and negative [facility] Past Medical History Medical History (Updated 03/27/22 @ 20:35 by Kathya Arriola PA-C) Anemia Hypertension Surgical History Surgical History H/O dilation and curettage History of appendectomy History of x7 History of removal of ovarian cyst Family History Family History Sibling Asthma Jorgensen's palsy Mother Hypertension Social History Social History Years smoked: 10 Smoking status: Current some day smoker Tobacco type: cigarettes Alcohol intake: current Drinks per week: 1 Alcohol use details: rare etoh Substance use: never Gender identity (if verbalized by the patient): Female Sexual Orientation (if Verbalized by the Patient): Straight or Heterosexual Spiritual care concerns: No Exam Narrative: APPEARANCE: Well appearing, no pain in distress, well-nourished. Head: Normocephalic and atraumatic. EYES: PERRLA/EOMI, conjunctivae clear NOSE: No nasal drainage EARS: External ear normal in appearance THROAT: Airway widely patent. Oropharynx is clear. Mucous membranes are moist. Uvula is midline. No tonsillar swelling. NECK: Supple. No adenopathy, no masses. RESPIRATORY: Airway patent, respirations nonlabored. Clear to auscultation bilaterally, no rales, rhonchi, wheezing. CARDIOVASCULAR: Regular rate and rhythm without murmurs, rubs, or gallops. ABDOMINAL: Normoactive bowel sounds. Soft, nontender, nondistended. No rebound tenderness or guarding. MUSCULOSKELETAL: Tenderness to palpation along C6/C7. Spurling's test is positive. 5 out of 5 strength in bilateral upper extremities. Strong peripheral pulses. NEURO: Normal speech. No focal neurologic deficits. SKIN: Skin is warm and dry. No rashes. PSYCHIATRIC: Normal affect/mood. Course Vital Signs Vital signs: Vital Signs Temperature 98.4 F 03/27/22 18:28 Pulse Rate 90 03/27/22 18:28 Respiratory Rate 16 03/27/22 18:28 Blood Pressure 131/76 03/27/22 18:28 Pulse Oximetry 100 03/27/22 18:28 Oxygen Delivery Room Air 03/27/22 18:28 Temperature 98.4 F 03/27/22 18:28 Pulse Rate 90 03/27/22 18
[2022-03-27] MEDS: HYDROcodone/acetaminophen (*CRX) 5-325 MG TABLET 1 TAB PO (20:12)
== END 2022-03-27 20:51 | disposition home or self-care (01) ==
PROVIDERS: Emergency Provider Physician Assistant
DX: M48.02 Spinal stenosis, cervical region (principal); I10 Essential (primary) hypertension; F17.210 Nicotine dependence, cigarettes, uncomplicated
CPT/HCPCS: 72040; 99283; A9270

== ENCOUNTER 2022-05-16 16:10 | Emergency (ER) | payer BC, SELFPAY ==
--- NOTE | ~2022-05-16 | CT_ITS ---
EXAMINATION: CT abdomen pelvis w con DATE: 05/16/2022 19:44 INDICATION: suprapubic pain TECHNIQUE: Computed tomography (CT) of the abdomen and pelvis was performed with 100 mL Omnipaque-350 intravenous contrast. Automated exposure control and iterative reconstruction technique were employe d. The dose-length product was 810.85 mGy-cm. COMPARISON: 07/18/2020. FINDINGS: Lower thorax: Unremarkable Liver: Left lobe cyst or hemangioma. Biliary/Gallbladder: Gallbladder is normal. No bile duct dilation. Pancreas: No mass or duct dilation. Spleen: Normal. Adrenals:No mass. Kidneys: Bilateral hypodensities that are too small to characterize but most likely represent cysts. GI tract: No small or large bowel dilation. The appendix is not confidently visualized. Mesentery/Peritoneum: No ascites, mass, or free air. Retroperitoneum: No mass. Pelvis: Left ovary not visualized, surgically absent. Remaining pelvic organs are within normal limit s. Interval resolution/decrease in size of the previously described right ovarian cystic lesion. Soft Tissues: Soft tissues and body wall unremarkable. Bones: No acute osseous finding. IMPRESSION: No acute abdominopelvic process detected. Reviewed, dictated and finalized at location K.
[2022-05-16 16:31] VITALS: BP 116/69; PULSE 78; RESP 20; TEMP 36.9; O2SAT 100
[2022-05-16 16:51] LABS: Appearance Urine Clear (Clear); Bilirubin Urine Negative (Negative); Blood Urine Negative (Negative); Color Urine Yellow (Yellow); Glucose Urine UA Negative (Negative); Ketones Urine Negative (Negative); Leukocyte Esterase Ur Negative LEU/UL (Negative); Nitrate Urine Negative (Negative); Protein Urine Negative (Negative); Specific Grav Ur 1.027 (1.001-1.035); Urobilinogen Urine 0.2 mg/dL (<2.0); pH Urine 6.5 (5.0-9.0)
[2022-05-16 16:56] LABS: Add Urine Microscopic? NO
--- NOTE | 2022-05-16 18:33 | ED.GENADULT ---
HPI - General Adult General Chief complaint: Dental/Oral Stated complaint: Unspecified Time Seen by Provider: 05/16/22 18:20 History of Present Illness HPI narrative: 37 y/o F with history of anemia and hypertension reports for generalized dental pain, worse on the left mandible and right maxilla, and suprapubic abdominal pain, all for 1 week. Patient reports her face feels like a glowing orb . She feels her face feels swollen. Denies trismus, sore throat, abscess, drooling, nasal congestion. Pt also complaining of suprapubic abdominal pain, stating it feels weird when she pees. Denies a burning sensation when she urinates. Does reports urinary urgency x1 week. Denies diarrhea, vomiting, nausea, CP, SOB, BARBOSA, vision changes, back pain. Last BM today and normal. Denies fever, body aches, chills. LMP 3/8 and normal per patient. Related Data Home Medications Medication Instructions Recorded Confirmed loratadine 10 mg tablet (Claritin) 10 mg PO DAILY 12/01/19 12/01/19 Allergies Allergy/AdvReac Type Severity Reaction Status Date / Time pomegranate Allergy Severe Wheezing Verified 05/16/22 18:42 Review of Systems Review of Systems: CONSTITUTIONAL: Denies fever, chills EYES: Denies visual changes, redness, or discharge. ENT: Denies rhinorrhea, congestion, sore throat, or otalgia. CARDIOVASCULAR: Denies chest pain, palpitations, or edema. RESPIRATORY: Denies cough or dyspnea. GASTROINTESTINAL: See HPI GENITOURINARY: Denies hematuria. SKIN: Denies rash or itching. MUSCULOSKELETAL: Denies back pain, joint pain, or myalgia. NEUROLOGIC: Denies headache, numbness, dizziness, or weakness. PSYCHIATRIC: Denies anxiety or depression. [facility] Past Medical History Medical History (Updated 05/17/22 @ 00:00 by Background Daieshaon) Anemia Hypertension Surgical History Surgical History H/O dilation and curettage History of appendectomy History of x7 History of removal of ovarian cyst Family History Family History Sibling Asthma Jorgensen's palsy Mother Hypertension Social History Social History Years smoked: 10 Smoking status: Current some day smoker Tobacco type: cigarettes Alcohol intake: current Drinks per week: 1 Alcohol use details: rare etoh Substance use: never Gender identity (if verbalized by the patient): Female Sexual Orientation (if Verbalized by the Patient): Straight or Heterosexual Spiritual care concerns: No Exam Narrative: GENERAL: Well-appearing, well-nourished, and in no acute distress. Patient sitting on exam bed. Conversational. HEAD: Normocephalic, atraumatic. EYES: PERRLA and EOMI. ENT: Nares clear, no rhinorrhea or epistaxis. Mucous membranes moist. Oropharynx without tonsillar hypertrophy exudate or other lesions. Caries to molars. Generalized tenderness to dentition and gingiva, L mandibular teeth and R maxillary teeth predominantly. No areas of induration or fluctuation. No erythema or periapical abscess. No trismus. No tenderness, induration, lesion, or erythema to buccal mucosa or face. Floor of mouth soft, no necrosis. Tenderness overlying the L maxillary sinus. NECK: Supple. No adenopathy or masses. CHEST: Clear to auscultation. No respiratory distress. No wheezes rales or rhonchi HEART: Regular rate and rhythm. No murmur heard. Normal peripheral pulses. ABDOMEN: Soft, nondistended, normal active bowel sounds. Suprapubic tenderness. Negative Ely and McBurney. ANTIQUE JEWELRY REPAIRER: No lesions, erythema or rash to external genitalia, vagina or cervix. Scant blood in vaginal canal. No purulent discharge. No CMT. No masses palpated in adnexa. Tenderness overlying L adnexa on bimanual. EXTREMITIES: Normal range of motion. No edema. SKIN: Warm, dry, no rash. NEURO: No focal deficits. Alert and oriented x3. P
[2022-05-16] MEDS: SODIUM CHLORIDE 0.9% IV 1,000 ML 999 ML IV CONT (18:47)
[2022-05-16] MEDS: KETOROLAC 30 MG/ML VIAL (*BKC) IV PUSH (18:48)
[2022-05-16 19:04] LABS: Basophils Percent Auto 0.4 % (0.2-1.2); Eosinophils Absolute Auto 0.1 K/mm3 (0-0.3); Eosinophils Percent Auto 1.2 % (0-4.4); Hematocrit 32.2 % (37.0-47.0); Hemoglobin 10.2 g/dL (12.0-15.0); Immature Granulocyte Absolute 0.01 K/mm3 (0.00-0.031); Immature Granulocyte Percent A 0.2 % (0-0.5); Lymphocytes Absolute Auto 2.79 K/mm3 (0.9-3.2); Lymphocytes Percent Auto 54.1 % (18.3-44.2); Mean Corpuscular HGB Conc 31.7 g/dl (32-36); Mean Corpuscular Hemoglobin 27.6 pg (26-34); Mean Platelet Volume 10.6 fl (7.4-10.4); Monocytes Absolute Auto 0.4 K/mm3 (0.1-0.6); Monocytes Percent Auto 7.2 % (2.6-8.5); Neutrophils Absolute Auto 1.9 K/mm3 (1.3-6.7); Neutrophils Percent Auto 36.9 % (45.5-73.1); Platelet Count Result 289 k/mm3 (150-375); Red Cell Distribution Width 15.6 % (11.5-14.5); White Blood Count 5.2 K/mm3 (4.5-10.0)
[2022-05-16 19:09] LABS: Lactic Acid Reflex 0.6 mmol/L (0.7-2.0)
[2022-05-16 19:16] LABS: Alanine Aminotransferase 12 U/L (6-35); Albumin Level 4.4 g/dL (3.5-5.1); Alkaline Phosphatase 50 U/L (38-126); Anion Gap 2 mmol/L (8-16); Aspartate Amino Transferase 21 U/L (14-36); Bilirubin,Total 0.3 mg/dL (0.2-1.3); Blood Urea Nitrogen 9 mg/dL (7-17); Carbon Dioxide 31 mmol/L (22-30); Chloride 102 mmol/L (98-107); Estimated Glomerular Filt Rate > 60; Glucose 89 mg/dL (65-110); Lipase 76 U/L (23-300); Potassium 3.8 mmol/L (3.4-5.0); Sodium 135 mmol/L (137-145)
[2022-05-16] MEDS: HYDROcodone/acetaminophen (*CRX) 10-325 MG TABLET 1 TAB PO (21:02)
[2022-05-16 22:02] VITALS: BP 123/91; PULSE 74; RESP 18; TEMP 36.8; O2SAT 100
== END 2022-05-16 22:16 | disposition home or self-care (01) ==
PROVIDERS: Emergency Medicine; Emergency Provider Physician Assistant
DX: K02.9 Dental caries, unspecified (principal); R10.30 Lower abdominal pain, unspecified; I10 Essential (primary) hypertension; Z86.2 Personal history of diseases of the blood and blood-forming organs and certain disorders involving the immune mechanism; F17.210 Nicotine dependence, cigarettes, uncomplicated
CPT/HCPCS: 36415; 74177; 80053; 81003; 81025; 83605; 83690; 85025; 87070; 87491; 87591; 87808; 96361; 96374; 99284; A9270; J1885; J7030; Q9967

== ENCOUNTER 2022-06-08 13:14 | Emergency (ER) | payer BC, SELFPAY ==
[2022-06-08 13:59] VITALS: BP 145/103; PULSE 86; RESP 16; TEMP 36.8; O2SAT 99
--- NOTE | 2022-06-08 15:16 | PC.NURSE ---
States she has been sick for a 'few days'. States her youngest daughter just tested positive for strep and COVID. Pt states she has had sinus pressure across her face, ear pain and pressure to the left ear. Pt states she has been dealing with hot and cold flashes. Denies any medication today. Pt states she has pain with her cough in her chest. States she has been coughing up a greenish brown phlegm.
--- NOTE | 2022-06-08 16:05 | PC.NURSE ---
covid swab sent per order
[2022-06-08 16:44] LABS: Influenza A QL RT-PCR Negative (Negative); Influenza B QL RT-PCR Negative (Negative); RSV RNA, RT-PCR Negative (Negative); SARS-CoV-2 RNA PCR Positive
--- NOTE | 2022-06-08 17:07 | ED.GENADULT ---
HPI - General Adult General Chief complaint: Upper Respiratory Infection Stated complaint: headache, ear pain, tooth pain Time Seen by Provider: 06/08/22 15:50 History of Present Illness HPI narrative: 37-year-old female presented the emergency department for evaluation of cough and upper respiratory symptoms. Patient does have a child that was COVID-positive at home. Patient complains of headache along with ear pain and tooth pain. Patient does have a fractured tooth on her left upper jaw. Patient has had a previous tooth infection but has not yet had follow-up with a dentist. Patient denies any chest pain or shortness of breath. Patient denies any difficulty breathing or swallowing. Related Data Home Medications Medication Instructions Recorded Confirmed loratadine 10 mg tablet (Claritin) 10 mg PO DAILY 12/01/19 12/01/19 Allergies Allergy/AdvReac Type Severity Reaction Status Date / Time pomegranate Allergy Severe Wheezing Verified 06/08/22 15:19 Review of Systems Review of Systems: All systems reviewed & are unremarkable except as noted in HPI and below PMFSH Past Medical History Medical History (Updated 06/09/22 @ 00:01 by Karolina Mascorro) Anemia Hypertension Surgical History Surgical History H/O dilation and curettage History of appendectomy History of x7 History of removal of ovarian cyst Family History Family History Sibling Asthma Jorgensen's palsy Mother Hypertension Social History Social History Years smoked: 10 Smoking status: Current some day smoker Tobacco type: cigarettes Alcohol intake: current Drinks per week: 1 Alcohol use details: rare etoh Substance use: never Gender identity (if verbalized by the patient): Female Sexual Orientation (if Verbalized by the Patient): Straight or Heterosexual Spiritual care concerns: No Exam Narrative: APPEARANCE: Well appearing, no pain, no distress, well-nourished. HEAD: normocephalic, atraumatic. EYES: PERRLA/EOMI, conjunctivae clear. NOSE: Normal no drainage Mouth: Dental fracture on posterior left upper molar no abscess amenable to drainage no trismus EARS:TMS clear with good light reflex. THROAT: Pharynx clear, no exudate. NECK: Supple. No adenopathy, no masses. RESPIRATORY: Airway patent, respirations nonlabored. Clear to auscultation bilaterally, no rales, rhonchi, wheezing. CARDIOVASCULAR: Regular rate and rhythm without murmurs rubs or gallops. ABDOMINAL: Soft, nontender, nondistended, normal bowel sounds MUSCULOSKELETAL: Moves all extremities. Strength/ROM intact, No edema, No calf tenderness. NEURO: Alert. Cranial nerves II through XII intact. Grossly intact SKIN: Warm, dry. Normal Color Course Course Emergency Course: 37-year-old female presenting for evaluation after COVID exposure and also complaining of dental pain. Patient was positive for COVID. Patient was also treated for dental pain. Patient was started on Augmentin in the ED and encouraged of close follow-up with a dentist. All questions and concerns were addressed. Patient was well-appearing and in no distress at time of discharge. Vital Signs Vital signs: Vital Signs Temperature 98.2 F 06/08/22 13:59 Pulse Rate 86 06/08/22 13:59 Respiratory Rate 16 06/08/22 13:59 Blood Pressure 145/103 H 06/08/22 13:59 Pulse Oximetry 99 06/08/22 13:59 Oxygen Delivery Room Air 06/08/22 13:59 Temperature 98.2 F 06/08/22 13:59 Pulse Rate 86 06/08/22 13:59 Respiratory Rate 16 06/08/22 13:59 Blood Pressure 145/103 H 06/08/22 13:59 Pulse Oximetry 99 06/08/22 13:59 Oxygen Delivery Room Air 06/08/22 13:59 Medical Decision Making Vital Signs Vital Signs: Vital Signs Temperature 98.2 F 06/08/22 13:59 Pulse Rate 86 06/08/22 13:
[2022-06-08] MEDS: AMOXICILLIN/CLAVULANATE K 875-125 MG TAB 1 TABLET PO (17:36)
== END 2022-06-08 17:34 | disposition home or self-care (01) ==
PROVIDERS: Emergency Provider Emergency Medicine
DX: U07.1 COVID-19 (principal); K08.89 Other specified disorders of teeth and supporting structures; F17.210 Nicotine dependence, cigarettes, uncomplicated
CPT/HCPCS: 87637; 99283; A9270

== ENCOUNTER 2022-08-05 02:40 | Emergency (ER) | payer BC, SELFPAY ==
[2022-08-05 02:53] VITALS: BP 137/95; PULSE 64; RESP 18; TEMP 36.6; O2SAT 99
--- NOTE | 2022-08-05 04:46 | ED.GENADULT ---
HPI - General Adult General Chief complaint: Dental/Oral Stated complaint: bad tooth/unable to move jaw with pain Time Seen by Provider: 08/05/22 03:51 History of Present Illness HPI narrative: Patient 37-year-old female presents emergency department with chief complaint of dental pain. Patient reports that she has been having pain in her posterior upper and posterior lower molars for some time. Patient states that the area around is very tender reports that she has not been able to see a dentist. The patient denies trismus denies fluctuance denies purulent drainage. The patient denies shortness of breath or difficulty swallowing Related Data Home Medications Medication Instructions Recorded Confirmed loratadine 10 mg tablet (Claritin) 10 mg PO DAILY 12/01/19 12/01/19 Allergies Allergy/AdvReac Type Severity Reaction Status Date / Time pomegranate Allergy Severe Wheezing Verified 08/05/22 02:41 Review of Systems Review of Systems: A 10 system review of systems was completed on the patient and is negative except for what is stated in the HPI. Nursing and ancillary documentation was reviewed. [facility] Past Medical History Medical History (Updated 08/05/22 @ 04:50 by Wily Mckenna MD) Anemia Hypertension Surgical History Surgical History H/O dilation and curettage History of appendectomy History of x7 History of removal of ovarian cyst Family History Family History Sibling Asthma Jorgensen's palsy Mother Hypertension Social History Social History Years smoked: 10 Smoking status: Current some day smoker Tobacco type: cigarettes Alcohol intake: current Drinks per week: 1 Alcohol use details: rare etoh Substance use: never Gender identity (if verbalized by the patient): Female Sexual Orientation (if Verbalized by the Patient): Straight or Heterosexual Spiritual care concerns: No Exam Narrative: GENERAL: Well-appearing, well-nourished, and in no acute distress. HEAD: Normocephalic, atraumatic. EYES: PERRLA and EOMI. ENT: Nares clear, no rhinorrhea or epistaxis. Mucous membranes moist. Oropharynx there is multiple carious teeth with the upper posterior molar is fractured and is tender to touch there is no purulent drainage there is no fluctuant mass there is no necrotic tissue there is no crepitance NECK: Supple. CHEST: Clear to auscultation. No respiratory distress. HEART: Regular rate and rhythm. No murmur heard. Normal peripheral pulses. ABDOMEN: Soft, nontender, nondistended, normal active bowel sounds. EXTREMITIES: Normal range of motion. No edema. SKIN: Warm, dry, no rash. NEURO: No focal deficits. Alert and oriented x3. PSYCH: Normal mood and affect. Course Vital Signs Vital signs: Vital Signs Temperature 36.6 C 08/05/22 02:53 Pulse Rate 64 08/05/22 02:53 Respiratory Rate 18 08/05/22 02:53 Blood Pressure 137/95 H 08/05/22 02:53 Pulse Oximetry 99 08/05/22 02:53 Temperature 36.6 C 08/05/22 02:53 Pulse Rate 64 08/05/22 02:53 Respiratory Rate 18 08/05/22 02:53 Blood Pressure 137/95 H 08/05/22 02:53 Pulse Oximetry 99 08/05/22 02:53 Procedures Other Procedure Procedure 1: Other Procedure: Dental block: After receiving verbal consent from the patient the area of the carious teeth that was tender was infiltrated with 1% lidocaine patient had improvement in the pain and had no complications 3 mL of 1% lidocaine was used without epinephrine Medical Decision Making Vital Signs Vital Signs: Vital Signs Temperature 36.6 C 08/05/22 02:53 Pulse Rate 64 08/05/22 02:53 Respiratory Rate 18 08/05/22 02:53 Blood Pressure 137/95 H 08/05/22 02:53 Pulse Oximetry 99 08/05/22 02:53 Temperature
[2022-08-05] MEDS: HYDROcodone/acetaminophen (*CRX) 5-325 MG TABLET 1 TAB PO (05:01)
[2022-08-05] MEDS: AMOXICILLIN 500 MG CAPSULE PO (05:01)
[2022-08-05] MEDS: LIDOCAINE HCL 1% LOCAL INJ 10 ML VIAL (05:03)
[2022-08-05 05:05] VITALS: BP 130/86; PULSE 63; RESP 18; O2SAT 100
== END 2022-08-05 05:06 | disposition home or self-care (01) ==
PROVIDERS: Emergency Provider Emergency Medicine
DX: K04.7 Periapical abscess without sinus (principal); F17.210 Nicotine dependence, cigarettes, uncomplicated
CPT/HCPCS: 64999; 99283; A9270

== ENCOUNTER 2022-10-29 16:42 | Emergency (ER) | payer SELFPAY ==
[2022-10-29] VITALS (8 sets, daily range): BP systolic 116; BP diastolic 68; PULSE 68; RESP 18; TEMP 36.9; O2SAT 95–100
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
[2022-10-29] MEDS: KETOROLAC 30 MG/ML VIAL (*BKC) IM (18:01)
[2022-10-29] MEDS: predniSONE 20 MG TABLET 60 MG PO (18:02)
[2022-10-29] MEDS: oxyCODONE/ACETAMINOPHEN (*CRX) 5-325 MG TABLET 1 TABLET PO ×2 (18:02→21:52)
== END 2022-10-29 22:12 | disposition home or self-care (01) ==
PROVIDERS: Emergency Provider Emergency Medicine
DX: M54.16 Radiculopathy, lumbar region (principal); I10 Essential (primary) hypertension; F17.210 Nicotine dependence, cigarettes, uncomplicated
CPT/HCPCS: 72128; 72131; 96372; 99284; A9270; J1885; J7512